=== PATIENT | male | born 1955 | race Hispanic/Latino ===

== ENCOUNTER 2017-08-06 12:41 | Emergency (ER) | payer SELFPAY ==
[2017-08-06] MEDS ORDERED: NACL 0.9% 1000 ML 1,000 ML ONE (13:11)
[2017-08-06 13:50] LABS: Urine Drugs of Abuse Note Disclamer
[2017-08-06 13:59] LABS: Bilirubin,Urine NEG (Negative); Blood,Urine NEG (Negative); Ketones,Urine NEG (Negative); Leukocyte Esterase,Urine NEG (Negative); Nitrite,Urine NEG (Negative); Protein,Urine <15 mg/dL mg/dL (Negative); RBC,Urine < 1.0 /HPF (0.0-6.0); Urobilinogen,Urine < 2.0 mg/dL (<2.0); WBC,Urine < 1.0 /HPF (0.0-6.0)
[2017-08-06 14:50] LABS: Basophils % (Auto) 0.9 % (0.0-1.8); Eosinophils % (Auto) 2.7 % (0.0-4.3); Hematocrit 34.1 % (35.5-45.6); Hemoglobin 11.3 gm/dl (11.8-15.2); Mean Corpuscular HGB Conc 33 % (32-34); Mean Corpuscular Hemoglobin 31 pg (28-32); Mean Corpuscular Volume 95 fl (84-94); Platelet Count 124 K/mm3 (140-440); Red Blood Count 3.59 M/mm3 (3.65-5.03); White Blood Count 6.3 K/mm3 (4.5-11.0)
[2017-08-06 15:18] LABS: Albumin 3.5 g/dL (3.9-5); Albumin/Globulin Ratio 1.2 %; BUN/Creatinine Ratio 15.88; Bilirubin,Total 0.5 mg/dL (0.1-1.2); Calcium 8.6 mg/dL (8.4-10.2); Magnesium 2.4 mg/dL (1.7-2.3); Potassium 4.3 mmol/L (3.6-5.0); Total Protein 6.4 g/dL (6.3-8.2)
--- NOTE | 2017-08-06 17:31 | Emergency Department Report ---
ED General Adult HPI - General Chief complaint: Overdose Stated complaint: AMS Time Seen by Provider: 08/06/17 17:29 Source: EMS Mode of arrival: Stretcher Limitations: Altered Mental Status - History of Present Illness Initial comments: Patient is a 62-year-old male past medical history of opiate abuse and suicidal ideation from [place]. Who presents with accidental medication error. Patient was giving a double dose of his 2 mg of Suboxone. This occurred around 10 AM in the morning. Patient was initially lethargic and was given 1 mg of Narcan. Patient is resting calmly in the ER. He is alert and oriented. He has no pinpoint pupils. Patient denies being in any pain. Nothing makes his symptoms better or worse. Patient denies having any nausea or vomiting. Severity scale (0 -10): 0 - Related Data Allergies Allergy/AdvReac Type Severity Reaction Status Date / Time morphine Allergy Unknown Verified 08/06/17 13:02 succinylcholine Allergy Unknown Verified 08/06/17 13:02 ED Review of Systems ROS: Stated complaint: AMS Other details as noted in HPI Constitutional: weakness. denies: chills, fever Eyes: denies: eye pain, eye discharge, vision change ENT: denies: ear pain, throat pain Respiratory: denies: cough, shortness of breath, wheezing Cardiovascular: denies: chest pain, palpitations Endocrine: no symptoms reported Gastrointestinal: denies: abdominal pain, nausea, diarrhea Genitourinary: denies: urgency, dysuria Musculoskeletal: denies: back pain, joint swelling, arthralgia Skin: denies: rash, lesions Neurological: denies: headache, weakness, paresthesias Psychiatric: as per HPI, anxiety, depression, suicidal thoughts Hematological/Lymphatic: denies: easy bleeding, easy bruising ED Past Medical Hx - Past Medical History Previous Medical History?: Yes Hx Hypertension: Yes Hx Psychiatric Treatment: Yes (SI, HEARING VOICES) Additional medical history: CROHNS DISEASE, ABD AORTIC ANEURYSM, SPINAL STENOSIS , MULTIPLE SCLEROSIS - Surgical History Past Surgical History?: Yes Additional Surgical History: ABDOMINAL SURGERY - Social History Smoking Status: Unknown if ever smoked Substance Use Type: Prescribed ED Physical Exam - General Limitations: Altered Mental Status General appearance: alert, in no apparent distress - Head Head exam: Present: atraumatic, normocephalic - Eye Eye exam: Present: normal appearance - ENT ENT exam: Present: mucous membranes moist - Neck Neck exam: Present: normal inspection - Respiratory Respiratory exam: Present: normal lung sounds bilaterally. Absent: respiratory distress - Cardiovascular Cardiovascular Exam: Present: regular rate, normal rhythm. Absent: systolic murmur, diastolic murmur, rubs, gallop - GI/Abdominal GI/Abdominal exam: Present: soft, normal bowel sounds - Rectal Rectal exam: Present: deferred - Extremities Exam Extremities exam: Present: normal inspection - Back Exam Back exam: Present: normal inspection - Neurological Exam Neurological exam: Present: alert, oriented X3 - Psychiatric Psychiatric exam: Present: depressed, suicidal ideation - Skin Skin exam: Present: warm, dry, intact, normal color. Absent: rash ED Course Vital Signs 08/06/17 08/06/17 08/06/17 12:43 13:16 13:19 Temperature 97.5 F L 97.9 F Pulse Rate 61 Respiratory 12 14 Rate Blood Pressure 102/55 Blood Pressure [Left] O2 Sat by Pulse 100 100 Oximetry 08/06/17 08/06/17 08/06/17 13:30 13:46 14:00 Temperature Pulse Rate 60 61 65 Respiratory 13 11 L 12 Rate Blood Pressure 91/47 82/47 82/47 Blood Pressure [Left] O2 Sat by Pulse 100 Oximetry 08/06/17 08/06/17 08/06/17 14:02 14:16 14:30 Temperature Pulse Rate 61 59 L Respiratory 12 12 16 Rate Blood Pressure 94/40 94/40 Blood Pressure [Left] O2 Sat by Pulse 100 Oximetry 08/06/17 08/06/17 08/06/17 14:46 15:00 15:16 Temperature Pulse Rate 61 60 60 Respiratory 11 L 11 L 12 Rate Blood Pressure 88/46 86/44 99/44 Blood Pressure [Left] O2 Sat by Pulse 100 100 Oximetry 08/06/17 08/06/17 08/06/17 15:30 15:46 16:00 Temperature Pulse Rate 62 62 62 Respiratory 12 11 L 12 Rate Blood Pressure 93/45 91/43 95/47 Blood Pressure [Left] O2 Sat by Pulse 100 100 Oximetry 08/06/17 08/06/17 08/06/17 16:15 16:30 16:46 Temperature Pulse Rate 64 64 68 Respiratory 13 13 15 Rate Blood Pressure 98/53 95/47 119/82 Blood Pressure [Left] O2 Sat by Pulse 100 100 100 Oximetry 08/06/17 08/06/17 08/06/17 17:00 17:16 17:30 Temperature Pulse Rate 65 65 66 Respiratory 12 13 18 Rate Blood Pressure 119/82 116/61 89/51 Blood Pressure [Left] O2 Sat by Pulse 100 99 100 Oximetry 08/06/17 08/06/17 08/06/17 17:46 18:00 18:15 Temperature Pulse Rate 67 66 63 Respiratory 11 L 16 13 Rate Blood Pressure 101/59 120/46 89/47 Blood Pressure [Left] O2 Sat by Pulse 100 95 100 Oximetry 08/06/17 08/06/17 08/06/17 18:30 18:46 19:02 Temperature 98 F Pulse Rate 61 61 63 Respiratory 12 12 16 Rate Blood Pressure 89/47 90/43 Blood Pressure 94/69 [Left] O2 Sat by Pulse 100 100 99 Oximetry - Consultations Consultation #1: 08/06/17 20:03 Consulted with poison control patient's doesn't need any intervention it's been several hours since he took the Suboxone and the dose he got is well within the treatment limits. I will send the patient back to his care facility. ED Medical Decision Making - Lab Data Result diagrams: 08/06/17 14:35 08/06/17 14:35 Lab Results 08/06/17 08/06/17 08/06/17 Range/Units 12:53 13:48 13:48 WBC (4.5-11.0) K/mm3 RBC (3.65-5.03) M/mm3 Hgb (11.8-15.2) gm/dl Hct (35.5-45.6) % MCV (84-94) fl MCH (28-32) pg MCHC (32-34) % RDW (13.2-15.2) % Plt Count (140-440) K/mm3 Lymph % (Auto) (13.4-35.0) % [place] % (Auto) (0.0-7.3) % Eos % (Auto) (0.0-4.3) % Baso % (Auto) (0.0-1.8) % Lymph # (1.2-5.4) K/mm3 [place] # (0.0-0.8) K/mm3 Eos # (0.0-0.4) K/mm3 Baso # (0.0-0.1) K/mm3 Seg Neutrophils % (40.0-70.0) % Seg Neutrophils # (1.8-7.7) K/mm3 Sodium (137-145) mmol/L Potassium (3.6-5.0) mmol/L Chloride (98-107) mmol/L Carbon Dioxide (22-30) mmol/L Anion Gap mmol/L BUN (9-20) mg/dL Creatinine (0.8-1.5) mg/dL Estimated GFR ml/min BUN/Creatinine Ratio % Glucose (75-100) mg/dL POC Glucose 96 (70-105) Lactic Acid (0.7-2.0) mmol/L Calcium (8.4-10.2) mg/dL Magnesium (1.7-2.3) mg/dL Total Bilirubin (0.1-1.2) mg/dL AST (5-40) units/L ALT (7-56) units/L Alkaline Phosphatase (35-129) units/L Total Protein (6.3-8.2) g/dL Albumin (3.9-5) g/dL Albumin/Globulin Ratio % TSH (0.270-4.200) mlU/mL Urine Color Yellow (Yellow) Urine Turbidity Clear (Clear) Urine pH 6.0 (5.0-7.0) Ur Specific [place] 1.010 (1.003-1.030) Urine Protein <15 mg/dl (Negative) mg/dL Urine Glucose (UA) Neg (Negative) mg/dL Urine Ketones Neg (Negative) mg/dL Urine Blood Neg (Negative) Urine Nitrite Neg (Negative) Urine Bilirubin Neg (Negative) Urine Urobilinogen < 2.0 (<2.0) mg/dL Ur Leukocyte Esterase Neg (Negative) Urine WBC (Auto) < 1.0 (0.0-6.0) /HPF Urine RBC (Auto) < 1.0 (0.0-6.0) /HPF Salicylates (2.8-20.0) mg/dL Urine Opiates Screen Presumptive negative Urine Methadone Screen Presumptive negative Acetaminophen (10.0-30.0) ug/mL Ur Barbiturates Screen Presumptive negative Ur Phencyclidine Scrn Presumptive negative Ur Amphetamines Screen Presumptive negative U Benzodiazepines Scrn Presumptive negative Urine Cocaine Screen Presumptive negative U Marijuana (THC) Screen Presumptive negative Drugs of Abuse Note Disclamer Plasma/Serum Alcohol (0-0.07) gm% 08/06/17 08/06/17 08/06/17 Range/Units 14:35 14:35 14:35 WBC 6.3 (4.5-11.0) K/mm3 RBC 3.59 L (3.65-5.03) M/mm3 Hgb 11.3 L (11.8-15.2) gm/dl Hct 34.1 L (35.5-45.6) % MCV 95 H (84-94) fl MCH 31 (28-32) pg MCHC 33 (32-34) % RDW 14.0 (13.2-15.2) % Plt Count 124 L (140-440) K/mm3 Lymph % (Auto) 27.1 (13.4-35.0) % [place] % (Auto) 14.0 H (0.0-7.3) % Eos % (Auto) 2.7 (0.0-4.3) % Baso % (Auto) 0.9 (0.0-1.8) % Lymph # 1.7 (1.2-5.4) K/mm3 [place] # 0.9 H (0.0-0.8) K/mm3 Eos # 0.2 (0.0-0.4) K/mm3 Baso # 0.1 (0.0-0.1) K/mm3 Seg Neutrophils % 55.3 (40.0-70.0) % Seg Neutrophils # 3.5 (1.8-7.7) K/mm3 Sodium 137 (137-145) mmol/L Potassium 4.3 (3.6-5.0) mmol/L Chloride 100.0 (98-107) mmol/L Carbon Dioxide 25 (22-30) mmol/L Anion Gap 16 mmol/L BUN 27 H (9-20) mg/dL Creatinine 1.7 H (0.8-1.5) mg/dL Estimated GFR 41 ml/min BUN/Creatinine Ratio 15.88 % Glucose 82 (75-100) mg/dL POC Glucose (70-105) Lactic Acid 1.10 (0.7-2.0) mmol/L Calcium 8.6 (8.4-10.2) mg/dL Magnesium 2.40 H (1.7-2.3) mg/dL Total Bilirubin 0.50 (0.1-1.2) mg/dL AST 34 (5-40) units/L ALT 27 (7-56) units/L Alkaline Phosphatase 77 (35-129) units/L Total Protein 6.4 (6.3-8.2) g/dL Albumin 3.5 L (3.9-5) g/dL Albumin/Globulin Ratio 1.2 % TSH (0.270-4.200) mlU/mL Urine Color (Yellow) Urine Turbidity (Clear) Urine pH (5.0-7.0) Ur Specific [place] (1.003-1.030) Urine Protein (Negative) mg/dL Urine Glucose (UA) (Negative) mg/dL Urine Ketones (Negative) mg/dL Urine Blood (Negative) Urine Nitrite (Negative) Urine Bilirubin (Negative) Urine Urobilinogen (<2.0) mg/dL Ur Leukocyte Esterase (Negative) Urine WBC (Auto) (0.0-6.0) /HPF Urine RBC (Auto) (0.0-6.0) /HPF Salicylates (2.8-20.0) mg/dL Urine Opiates Screen Urine Methadone Screen Acetaminophen (10.0-30.0) ug/mL Ur Barbiturates Screen Ur Phencyclidine Scrn Ur Amphetamines Screen U Benzodiazepines Scrn Urine Cocaine Screen U Marijuana (THC) Screen Drugs of Abuse Note Plasma/Serum Alcohol (0-0.07) gm% 08/06/17 08/06/17 08/06/17 Range/Units 14:35 14:35 14:35 WBC (4.5-11.0) K/mm3 RBC (3.65-5.03) M/mm3 Hgb (11.8-15.2) gm/dl Hct (35.5-45.6) % MCV (84-94) fl MCH (28-32) pg MCHC (32-34) % RDW (13.2-15.2) % Plt Count (140-440) K/mm3 Lymph % (Auto) (13.4-35.0) % [place] % (Auto) (0.0-7.3) % Eos % (Auto) (0.0-4.3) % Baso % (Auto) (0.0-1.8) % Lymph # (1.2-5.4) K/mm3 [place] # (0.0-0.8) K/mm3 Eos # (0.0-0.4) K/mm3 Baso # (0.0-0.1) K/mm3 Seg Neutrophils % (40.0-70.0) % Seg Neutrophils # (1.8-7.7) K/mm3 Sodium (137-145) mmol/L Potassium (3.6-5.0) mmol/L Chloride (98-107) mmol/L Carbon Dioxide (22-30) mmol/L Anion Gap mmol/L BUN (9-20) mg/dL Creatinine (0.8-1.5) mg/dL Estimated GFR ml/min BUN/Creatinine Ratio % Glucose (75-100) mg/dL POC Glucose (70-105) Lactic Acid (0.7-2.0) mmol/L Calcium (8.4-10.2) mg/dL Magnesium (1.7-2.3) mg/dL Total Bilirubin (0.1-1.2) mg/dL AST (5-40) units/L ALT (7-56) units/L Alkaline Phosphatase (35-129) units/L Total Protein (6.3-8.2) g/dL Albumin (3.9-5) g/dL Albumin/Globulin Ratio % TSH 3.390 (0.270-4.200) mlU/mL Urine Color (Yellow) Urine Turbidity (Clear) Urine pH (5.0-7.0) Ur Specific [place] (1.003-1.030) Urine Protein (Negative) mg/dL Urine Glucose (UA) (Negative) mg/dL Urine Ketones (Negative) mg/dL Urine Blood (Negative) Urine Nitrite (Negative) Urine Bilirubin (Negative) Urine Urobilinogen (<2.0) mg/dL Ur Leukocyte Esterase (Negative) Urine WBC (Auto) (0.0-6.0) /HPF Urine RBC (Auto) (0.0-6.0) /HPF Salicylates < 0.3 L (2.8-20.0) mg/dL Urine Opiates Screen Urine Methadone Screen Acetaminophen < 15.0 (10.0-30.0) ug/mL Ur Barbiturates Screen Ur Phencyclidine Scrn Ur Amphetamines Screen U Benzodiazepines Scrn Urine Cocaine Screen U Marijuana (THC) Screen Drugs of Abuse Note Plasma/Serum Alcohol (0-0.07) gm% 08/06/17 08/06/17 Range/Units 14:35 16:23 WBC (4.5-11.0) K/mm3 RBC (3.65-5.03) M/mm3 Hgb (11.8-15.2) gm/dl Hct (35.5-45.6) % MCV (84-94) fl MCH (28-32) pg MCHC (32-34) % RDW (13.2-15.2) % Plt Count (140-440) K/mm3 Lymph % (Auto) (13.4-35.0) % [place] % (Auto) (0.0-7.3) % Eos % (Auto) (0.0-4.3) % Baso % (Auto) (0.0-1.8) % Lymph # (1.2-5.4) K/mm3 [place] # (0.0-0.8) K/mm3 Eos # (0.0-0.4) K/mm3 Baso # (0.0-0.1) K/mm3 Seg Neutrophils % (40.0-70.0) % Seg Neutrophils # (1.8-7.7) K/mm3 Sodium (137-145) mmol/L Potassium (3.6-5.0) mmol/L Chloride (98-107) mmol/L Carbon Dioxide (22-30) mmol/L Anion Gap mmol/L BUN (9-20) mg/dL Creatinine (0.8-1.5) mg/dL Estimated GFR ml/min BUN/Creatinine Ratio % Glucose (75-100) mg/dL POC Glucose (70-105) Lactic Acid 1.00 (0.7-2.0) mmol/L Calcium (8.4-10.2) mg/dL Magnesium (1.7-2.3) mg/dL Total Bilirubin (0.1-1.2) mg/dL AST (5-40) units/L ALT (7-56) units/L Alkaline Phosphatase (35-129) units/L Total Protein (6.3-8.2) g/dL Albumin (3.9-5) g/dL Albumin/Globulin Ratio % TSH (0.270-4.200) mlU/mL Urine Color (Yellow) Urine Turbidity (Clear) Urine pH (5.0-7.0) Ur Specific [place] (1.003-1.030) Urine Protein (Negative) mg/dL Urine Glucose (UA) (Negative) mg/dL Urine Ketones (Negative) mg/dL Urine Blood (Negative) Urine Nitrite (Negative) Urine Bilirubin (Negative) Urine Urobilinogen (<2.0) mg/dL Ur Leukocyte Esterase (Negative) Urine WBC (Auto) (0.0-6.0) /HPF Urine RBC (Auto) (0.0-6.0) /HPF Salicylates (2.8-20.0) mg/dL Urine Opiates Screen Urine Methadone Screen Acetaminophen (10.0-30.0) ug/mL Ur Barbiturates Screen Ur Phencyclidine Scrn Ur Amphetamines Screen U Benzodiazepines Scrn Urine Cocaine Screen U Marijuana (THC) Screen Drugs of Abuse Note Plasma/Serum Alcohol < 0.01 (0-0.07) gm% - EKG Data -: EKG Interpreted by Me - EKG Data 08/06/17 18:33 EKG shows sinus rhythm nonspecific T-wave abnormality and aVL V5 and V6 no ST segment elevations normal axis. - Medical Decision Making Chief medical diagnosis: Suboxone overdose Differential medical diagnosis: Metabolic abnormality, medication side effect, alcohol intoxication I will get CBC, CMP, urine tox, observation and poison control consult. Critical care attestation.: If time is entered above; I have spent that time in minutes in the direct care of this critically ill patient, excluding procedure time. ED Disposition Clinical Impression: Medication administered in error Qualifiers: Encounter type: initial encounter Injury intent: accidental or unintentional Qualified Code(s): T50.901A - Poisoning by unspecified drugs, medicaments and biological substances, accidental (unintentional), initial encounter Overdose opiate Qualifiers: Encounter type: initial encounter Injury intent: accidental or unintentional Qualified Code(s): T40.601A - Poisoning by unspecified narcotics, accidental ( unintentional), initial encounter Disposition: DC/TX-65 PSY HOSP/PSY UNIT Is pt being admited?: No Does the pt Need Aspirin: No Condition: Stable Instructions: Narcotic Abuse (ED) Referrals: VALENTINO BOUDREAUX MD [Staff Physician] - 3-5 Days
[2017-08-06 21:21] VITALS: BP 94/69
== END 2017-08-06 21:15 ==
LOC: ED 12:41
DX: T40.601A Poisoning by unspecified narcotics, accidental (unintentional), initial encounter (principal); I10 Essential (primary) hypertension; Z88.6 Allergy status to analgesic agent; Z88.8 Allergy status to other drugs, medicaments and biological substances; Y92.89 Other specified places as the place of occurrence of the external cause
CPT/HCPCS: 36415; 80053; 80307; 81001; 82140; 82962; 83735; 84443; 85025; 93005; 93010; 99285; G0480; J7030; 80320

== ENCOUNTER 2017-08-12 23:27 | Inpatient (IN) | payer MEDICARE, OTHER ==
[2017-08-13 00:25] LABS: Eosinophils % (Auto) 2.8 % (0.0-4.3); Hematocrit 39.2 % (35.5-45.6); Hemoglobin 13.2 gm/dl (11.8-15.2); Mean Corpuscular HGB Conc 34 % (32-34); Mean Corpuscular Hemoglobin 31 pg (28-32); Mean Corpuscular Volume 93 fl (84-94); Platelet Count 201 K/mm3 (140-440); Red Blood Count 4.24 M/mm3 (3.65-5.03); Red Cell Distribution Width 13.5 % (13.2-15.2); White Blood Count 8.1 K/mm3 (4.5-11.0)
[2017-08-13 00:43] LABS: INR 0.98 (0.87-1.13)
[2017-08-13 00:44] LABS: Partial Thromboplastin Time 30.1 Sec. (24.2-36.6)
[2017-08-13 00:46] LABS: Anion Gap 21 mmol/L; BUN/Creatinine Ratio 12; Blood Urea Nitrogen 13 mg/dL (9-20); Calcium 9.1 mg/dL (8.4-10.2); Carbon Dioxide 22 mmol/L (22-30); Glucose 101 mg/dL (75-100); Potassium 3.3 mmol/L (3.6-5.0); Sodium 137 mmol/L (137-145)
--- NOTE | 2017-08-13 02:03 | XRay Report ---
FINAL REPORT PROCEDURE: XR CHEST ROUTINE 2V TECHNIQUE: PA and lateral chest radiographs were obtained. CPT 29014 HISTORY: Chest Pain COMPARISON: No prior studies are available for comparison. FINDINGS: Heart: Normal. Mediastinum/Vessels: There is calcified plaque in the thoracic aorta. There is no aneurysm.. Lungs/Pleural space: There is advanced COPD. There are no active infiltrates. There are no effusions or pneumothoraces per. Bony thorax: No acute osseous abnormality. Other: IMPRESSION: There is advanced COPD. There are no active infiltrates..
[2017-08-13 05:40] LABS: Urine Drugs of Abuse Note Disclamer
[2017-08-13 05:52] LABS: Bilirubin,Urine NEG (Negative); Blood,Urine NEG (Negative); Ketones,Urine NEG (Negative); Leukocyte Esterase,Urine NEG (Negative); Mucus,Urine FEW /HPF; Nitrite,Urine NEG (Negative); Protein,Urine <15 mg/dL mg/dL (Negative); Urobilinogen,Urine < 2.0 mg/dL (<2.0); WBC,Urine < 1.0 /HPF (0.0-6.0)
--- NOTE | 2017-08-13 06:42 | Emergency Department Report ---
ED Chest Pain HPI - General Chief Complaint: Chest Pain Stated Complaint: CHEST AND JAW PAIN Time Seen by Provider: 08/13/17 06:27 Source: patient Mode of arrival: Ambulatory Limitations: No Limitations - History of Present Illness Initial Comments: 62-year-old male here with complaint of chest pain since 10:30 PM patient. Patient states pain is sharp in the center of his chest radiates to his back and into his left jaw. He's had some mild shortness of breath with it but otherwise no other symptoms. He denies fevers chills nausea vomiting. MD Complaint: chest pain -: Gradual Onset: during rest Pain Location: substernal Pain Radiation: jaw/teeth Severity: moderate Severity scale (0 -10): 0 Quality: sharp Improves With: nothing Worsens With: nothing Treatments Prior to Arrival: none - Related Data Allergies Allergy/AdvReac Type Severity Reaction Status Date / Time morphine Allergy Unknown Verified 08/06/17 13:02 succinylcholine Allergy Unknown Verified 08/06/17 13:02 Heart Score - HEART Score History: Moderately suspicious EKG: Non-specific Age: 45-65 Risk factors: 1-2 risk factors Troponin: < normal limit HEART Score: 4 - Critical Actions Critical Actions: 0-3 pts:0.9-1.7%risk of adverse cardiac event.Candidate for discharge ED Review of Systems ROS: Stated complaint: CHEST AND JAW PAIN Other details as noted in HPI Comment: All other systems reviewed and negative Constitutional: denies: chills, fever Eyes: eye pain ENT: denies: throat pain Respiratory: denies: cough, shortness of breath, wheezing Cardiovascular: chest pain, dyspnea on exertion. denies: palpitations Endocrine: no symptoms reported Gastrointestinal: denies: abdominal pain, nausea, diarrhea Genitourinary: denies: urgency, dysuria Musculoskeletal: denies: back pain, joint swelling, arthralgia Skin: denies: rash, lesions Neurological: denies: headache, weakness, paresthesias Psychiatric: denies: anxiety, depression Hematological/Lymphatic: denies: easy bleeding, easy bruising ED Past Medical Hx - Past Medical History Previous Medical History?: Yes Hx Hypertension: Yes Hx Psychiatric Treatment: Yes (SI, HEARING VOICES) Additional medical history: CROHNS DISEASE, ABD AORTIC ANEURYSM, SPINAL STENOSIS , MULTIPLE SCLEROSIS - Surgical History Past Surgical History?: Yes Additional Surgical History: ABDOMINAL SURGERY - Social History Smoking Status: Never Smoker Substance Use Type: None ED Physical Exam - General Limitations: No Limitations General appearance: alert, in no apparent distress - Head Head exam: Present: atraumatic, normocephalic - Eye Eye exam: Present: normal appearance. Absent: scleral icterus, conjunctival injection - ENT ENT exam: Present: mucous membranes moist - Neck Neck exam: Present: normal inspection. Absent: lymphadenopathy, thyromegaly - Respiratory Respiratory exam: Present: normal lung sounds bilaterally. Absent: respiratory distress, wheezes, rales - Cardiovascular Cardiovascular Exam: Present: regular rate, normal rhythm, normal heart sounds. Absent: systolic murmur, diastolic murmur, rubs, gallop - GI/Abdominal GI/Abdominal exam: Present: soft, normal bowel sounds. Absent: distended, tenderness, guarding - Rectal Rectal exam: Present: deferred - Extremities Exam Extremities exam: Present: normal inspection - Back Exam Back exam: Present: normal inspection - Neurological Exam Neurological exam: Present: alert, oriented X3 - Psychiatric Psychiatric exam: Present: normal affect, normal mood - Skin Skin exam: Present: warm, dry, intact, normal color. Absent: rash ED Course Vital Signs 08/12/17 08/13/17 23:34 06:36 Temperature 98.6 F Pulse Rate 78 74 Respiratory 18 18 Rate Blood Pressure 144/74 147/63 [Right] O2 Sat by Pulse 99 Oximetry ED Medical Decision Making - Lab Data Result diagrams: 08/13/17 00:10 08/13/17 00:10 Laboratory Results - last 24 hr 08/13/17 08/13/17 08/13/17 00:10 00:10 00:10 WBC 8.1 RBC 4.24 Hgb 13.2 Hct 39.2 MCV 93 MCH 31 MCHC 34 RDW 13.5 Plt Count 201 Lymph % (Auto) 40.2 H [place] % (Auto) 8.9 H Eos % (Auto) 2.8 Baso % (Auto) 1.0 Lymph # 3.2 [place] # 0.7 Eos # 0.2 Baso # 0.1 Seg Neutrophils % 47.1 Seg Neutrophils # 3.8 PT 13.5 INR 0.98 APTT 30.1 Sodium 137 Potassium 3.3 L Chloride 97.0 L Carbon Dioxide 22 Anion Gap 21 BUN 13 Creatinine 1.1 Estimated GFR > 60 BUN/Creatinine Ratio 12 Glucose 101 H Calcium 9.1 Troponin T < 0.010 Urine Color Urine Turbidity Urine pH Ur Specific [place] Urine Protein Urine Glucose (UA) Urine Ketones Urine Blood Urine Nitrite Urine Bilirubin Urine Urobilinogen Ur Leukocyte Esterase Urine WBC (Auto) Urine RBC (Auto) U Epithel Cells (Auto) Urine Mucus Urine Opiates Screen Urine Methadone Screen Ur Barbiturates Screen Ur Phencyclidine Scrn Ur Amphetamines Screen U Benzodiazepines Scrn Urine Cocaine Screen U Marijuana (THC) Screen Drugs of Abuse Note 08/13/17 08/13/17 08/13/17 02:50 04:49 04:49 WBC RBC Hgb Hct MCV MCH MCHC RDW Plt Count Lymph % (Auto) [place] % (Auto) Eos % (Auto) Baso % (Auto) Lymph # [place] # Eos # Baso # Seg Neutrophils % Seg Neutrophils # PT INR APTT Sodium Potassium Chloride Carbon Dioxide Anion Gap BUN Creatinine Estimated GFR BUN/Creatinine Ratio Glucose Calcium Troponin T < 0.010 Urine Color Yellow Urine Turbidity Clear Urine pH 5.0 Ur Specific [place] 1.010 Urine Protein <15 mg/dl Urine Glucose (UA) Neg Urine Ketones Neg Urine Blood Neg Urine Nitrite Neg Urine Bilirubin Neg Urine Urobilinogen < 2.0 Ur Leukocyte Esterase Neg Urine WBC (Auto) < 1.0 Urine RBC (Auto) 2.0 U Epithel Cells (Auto) < 1.0 Urine Mucus Few Urine Opiates Screen Presumptive negative Urine Methadone Screen Presumptive negative Ur Barbiturates Screen Presumptive negative Ur Phencyclidine Scrn Presumptive negative Ur Amphetamines Screen Presumptive negative U Benzodiazepines Scrn Presumptive negative Urine Cocaine Screen Presumptive negative U Marijuana (THC) Screen Presumptive negative Drugs of Abuse Note Disclamer 08/13/17 05:28 WBC RBC Hgb Hct MCV MCH MCHC RDW Plt Count Lymph % (Auto) [place] % (Auto) Eos % (Auto) Baso % (Auto) Lymph # [place] # Eos # Baso # Seg Neutrophils % Seg Neutrophils # PT INR APTT Sodium Potassium Chloride Carbon Dioxide Anion Gap BUN Creatinine Estimated GFR BUN/Creatinine Ratio Glucose Calcium Troponin T < 0.010 Urine Color Urine Turbidity Urine pH Ur Specific [place] Urine Protein Urine Glucose (UA) Urine Ketones Urine Blood Urine Nitrite Urine Bilirubin Urine Urobilinogen Ur Leukocyte Esterase Urine WBC (Auto) Urine RBC (Auto) U Epithel Cells (Auto) Urine Mucus Urine Opiates Screen Urine Methadone Screen Ur Barbiturates Screen Ur Phencyclidine Scrn Ur Amphetamines Screen U Benzodiazepines Scrn Urine Cocaine Screen U Marijuana (THC) Screen Drugs of Abuse Note - EKG Data -: EKG Interpreted by Me - EKG Data 08/13/17 06:42 Sinus 63 normal axis normal intervals abnormal R-wave progression no obvious ST changes, some T-wave changes in V5 and V6 - Radiology Data Radiology results: report reviewed, image reviewed - Medical Decision Making 62-year-old male with a history of abdominal aneurysm [place] here with complaint of chest pain. Patient has pain service chest radiates to his back. Denies fevers chills nausea vomiting. Given his age and his heart score and the fact that he's not had a stress test in over 4 years will likely need further risk stratification. Plan to admit the patient to the hospital. Discussed with the hospitalist and plan to admit the patient for further risk stratification. Portions of this chart were dictated with dictation software. There may be dictation errors contained within this note. Critical care attestation.: If time is entered above; I have spent that time in minutes in the direct care of this critically ill patient, excluding procedure time. ED Disposition Clinical Impression: Chest pain Disposition: DC-09 OP ADMIT IP TO THIS HOSP Is pt being admited?: Yes Condition: Stable Instructions: Chest Pain (ED) Referrals: PRIMARY CARE, [Primary Care Provider] - 3-5 Days
[2017-08-13] MEDS ORDERED: MORPHINE IV PRN (08:50)
[2017-08-13] MEDS ORDERED: ZOFRAN IV PRN (08:50)
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
[2017-08-13] MEDS ORDERED: TYLENOL PO PRN (09:00)
[2017-08-13] MEDS ORDERED: DULCOLAX PR PRN (09:00)
[2017-08-13] MEDS ORDERED: D5/0.45NS 1,000 ML IV SCH (09:00)
[2017-08-13] MEDS ORDERED: K-DUR PO ONE (09:30)
[2017-08-13] MEDS ORDERED: ASPIRIN PO SCH (10:00)
[2017-08-13] MEDS ORDERED: DILAUDID IM PRN (10:00)
[2017-08-13] MEDS ORDERED: LOVENOX SUB-Q SCH (10:00)
[2017-08-13] MEDS ORDERED: ZOFRAN IM PRN (10:00)
[2017-08-13] MEDS ORDERED: NITROSTAT SL PRN (10:00)
[2017-08-13] MEDS ORDERED: MILK OF MAGNESIA PO PRN (10:00)
[2017-08-13] MEDS ORDERED: LEXISCAN IV ONE ×2 (11:29→11:31)
[2017-08-13] MEDS ORDERED: DILAUDID ONE (12:26)
[2017-08-13 13:05] VITALS: BP 125/66
--- NOTE | 2017-08-13 13:43 | Discharge Summary ---
<GIULIANO NICKERSON - Last Filed: 08/13/17 13:45> Providers - Providers Date of Admission: 08/13/17 08:50 Date of discharge: 08/13/17 Attending physician: TAMARA LLOYD 08/13/17 10:14 Consult to Mental Health [CONS] Routine Reason For Exam: depression Place consult to:: yes Notified:: yes Phone number called:: marino [phone] Time called:: 13:30 Primary care physician: ST[facility] [employer]PA[employer] Hospitalization Reason for admission: chest pain Condition: Stable Hospital course: Patient is a 62 years old male from [facility] with past medical history of hypertension, depression, Suicidal ideation abdominal aneurysm MS and crohn's disease who presented to the Emergency Department complaining of Midsternal chest pain. He states that the pain began yesterday around 10:00PM, after eating dinner, constant midsternal chest pain. Patient described the pain as, sharp, pressure and squeezing in his chest; that radiates to the back. Patient was diagnosed with chest pain, hypertension, hypokalemia disorder and depression. Patient presented with atypical chest pain, ACS was ruled out, stress test normal MPI, negative cardiac enzymes, ECGs shows normal sinus rythm , CXR. Patient chest pain probably from musculoskeletal or gastritis. He was treated with IV fluid hydration and antihypertensive medications. Patient is clinically improved and stable for discharge. Patient advised to follow-up with her primary care provider. Discharge Diagnosed Chest Pain due to Costochondritis Hypokalemia Hypertension Depression Disposition: DC-01 TO HOME OR SELFCARE Time spent for discharge: 33 minutes Core Measure Documentation - Palliative Care Palliative Care/ Comfort Measures: Not Applicable - Core Measures Any of the following diagnoses?: none Exam - Constitutional Vitals: Temp Pulse Resp BP Pulse Ox 98.1 F 78 18 125/66 99 08/13/17 12:58 08/13/17 12:58 08/13/17 12:58 08/13/17 12:58 08/13/17 12:58 General appearance: Present: no acute distress - EENT Eyes: Present: PERRL ENT: hearing intact - Neck Neck: Present: supple - Respiratory Respiratory effort: normal Respiratory: bilateral: CTA - Cardiovascular Rhythm: regular Heart Sounds: Present: S1 & S2 - Extremities Extremities: no ischemia - Abdominal General gastrointestinal: Present: soft, non-tender Male genitourinary: Present: deferred - Rectal Rectal Exam: deferred - Integumentary Integumentary: Present: clear, warm, dry - Musculoskeletal Musculoskeletal: strength equal bilaterally - Psychiatric Psychiatric: appropriate mood/affect - Neurologic Neurologic: CNII-XII intact - Allied Health Allied health notes reviewed: nursing Plan Activity: no restrictions Weight Bearing Status: Weight Bear as Tolerated Diet: low fat, low salt Follow up with: [facility] [Provider Group] - 7 Days PRIMARY CARE, [Primary Care Provider] - 3-5 Days <TAMARA LLOYD - Last Filed: 08/13/17 15:05> Providers - Providers Date of Admission: 08/13/17 08:50 Attending physician: TAMARA LLOYD 08/13/17 10:14 Consult to Mental Health [CONS] Routine Reason For Exam: depression Place consult to:: yes Notified:: yes Phone number called:: ex [phone] Time called:: 13:30 Primary care physician: [facility] [employer] Hospitalization Hospital course: I saw and evaluated the patient. I agree with the findings and the plan of care as documented in the Nurse Practitioner's~note. Exam - Constitutional Vitals: Temp Pulse Resp BP Pulse Ox 98.1 F 78 18 125/66 99 08/13/17 12:58 08/13/17 12:58 08/13/17 12:58 08/13/17 12:58 08/13/17 12:58
--- NOTE | 2017-08-14 06:59 | Treadmill Report ---
REASON FOR STUDY: Chest pain. READING PHYSICIAN: Gerald Beckman MD IMAGING PROTOCOL: The patient received 10 mCi of Technetium 99m Tetrofosmin for resting image and 28 mCi of Technetium 99m Tetrofosmin for stress imaging. The imaging for the whole procedure was completed 30-90 minutes following the initial injection of Technetium 99m tetrofosmin. The SPECT imaging in the 180 degree arc was performed in the right anterior oblique projection. Computerized reconstruction of the images was performed for analysis. IMAGING RESULTS: Normal cavity size from stress to rest. Normal distribution of radionuclide in the anterior, inferior, septal, and apical regions. Gated SPECT, EF 50% with no wall motion abnormality. The patient infused Lexiscan with no EKG changes. SUMMARY: 1. Negative Lexiscan EKG. 2. Normal rest and stress myocardial perfusion scan. No significant stress ischemia. No wall motion abnormality. EF 50%. JOB# [id number] RON/ERLINDA
== END 2017-08-13 14:24 | DRG 206 ==
LOC: ED 23:27 → 4A 08-13 08:50
PROVIDERS: ADMIT Internal Medicine; ATTEND Internal Medicine
DX: M94.0 Chondrocostal junction syndrome [Tietze] (principal); K50.90 Crohn's disease, unspecified, without complications; I10 Essential (primary) hypertension; G35 Multiple sclerosis; F32.9 Major depressive disorder, single episode, unspecified; E87.6 Hypokalemia; Z88.6 Allergy status to analgesic agent; Z88.8 Allergy status to other drugs, medicaments and biological substances
CPT/HCPCS: 36415; 71020; 78452; 80048; 80307; 81001; 84484; 85025; 85610; 85730; 93005; 93010; 93017; 96372; 96374; A9502; J1170; J1650; J2785

== ENCOUNTER 2021-04-16 12:55 | Inpatient (IN) | payer MEDICARE ==
--- NOTE | 2021-04-17 08:51 | History and Physical Report ---
GP History & Physical - History of Present Illness Date of admission: 04/16/21 Date of Examination: 04/17/21 Reason for Admission: Danger to self, Failure of Outpatient Treatment, Severe anxiety/depression History of Present Illness: Amada Snow is a 65y/o male patient who states that he was admitted to [facility] for depression with suicidal thoughts and anxiety. The patient appears anxious. He is slightly shaky. He is a/o x 3. He denies any illicit drug use, alcohol or nicotine. He denies a plan to do self-harm. The patient denies being on any psych meds. He also denies a history of suicidal attempt or psych hospitalizations. He denies hallucinations PAST PSYCHIATRIC HISTORY: Diagnoses: Depression, anxiety Suicide attempts or Self-harm behavior: Denies Prior psychiatric hospitalizations: Denies Substance Abuse history: Denies Previous psychiatric medications tried: Ambien Outpatient treatment: Denies PAST MEDICAL HISTORY: HTN Family Psychiatric History: None reported or documented SOCIAL HISTORY Marital Status: Living Arrangements: With spouse Employment Status: Disabled/Retired Access to guns/weapons: Denies Education: high school History of Abuse: None reported Legal History: None reported REVIEW OF SYSTEMS Constitutional: Negative for weight loss ENT: Negative for stridor Respiratory: Negative for cough or hemoptysis All other systems reviewed and are negative MENTAL STATUS EXAMINATION General Appearance and Behavior: Age appropriate, good hygiene, wearing appropriate clothes, good eye contact, cooperative polite with questioning. shaky Cooperation: Participating/engaged Psychomotor Behavior: Psychomotor normal Mood: "depressed, anxious" Affect and affective range: congruent with stated mood Thought Process: goal directed Thought Content: SI Speech: Normal tone and pace Suicidal Ideation: Yes Homicidal Ideation: Denies Hallucinations: Denies Delusions: None elicited Impulse Control: Limited Insight and Judgment: Limited insight and judgment Memory: Limited Attention: Divided attention impaired Orientation: Alert, oriented, Assessment and Plan (1) MDD, severe, with psychotic features Current Visit: Yes Status: Acute Treatment Plan Patient admitted for inpatient psychiatric evaluation, medication adjustment and close monitoring The patient's behavior, mood, sleep and appetite will be closely monitored. Patient enrolled in individual and group therapeutic sessions and encouraged to attend. Patient provided with a safe and structured environment. Patient's physical health needs will be addressed by the Hospitalist. Hospitalist Consulted Labs including CBC, CMP, Lipid profile and Hemoglobin A1C levels ordered for baseline reference Social Assessment will be completed and the Decker Operator will work with marcelino pérez and family to ensure a suitable and safe disposition Medication adjustment will be made as clinically indicated Zoloft 25mg po daily Trazodone 50mg po qd Vistaril 25mg po BID Continued home medications, hold pain meds and allow hospitalist to continue Usual Wellness Buddhism/Preservation: - Start Trazodone 50 mg po QHS & 50 mg po QHS PRN between 10 PM & 2 AM for insomnia - Start Melatonin 5 mg po QHS to promote circadian rhythm - Start Hendrum-3 for brain health, reduce impulsivity, and as adjunctive treatment for mood disorder, continue upon discharge given overall benefits. - Start B1 prophylaxis with 200 mg po for 5 days The patient agreed on the treatment plan, understood the risk, benefit, alternative treatment, potential consequence of no treatment, and gave informed consent. Estimated days: 2 Post hospital care: primary care provider, psychiatric provider Case staffed with Dr. Pittman Legal Status: Voluntary Reaction to Hospitalization: Accepting Medications and Allergies Allergies Allergy/AdvReac Type Severity Reaction Status Date / Time morphine Allergy Unknown Unverified 04/16/21 13:26 prednisone Allergy Unknown Unverified 04/16/21 13:26 succinylcholine Allergy Unknown Verified 08/06/17 13:02 Home Medications Medication Instructions Recorded Confirmed Last Taken Type Aspirin 325 mg PO DAILY tablet 08/13/17 Unknown Rx Gabapentin [Neurontin] 800 mg PO QID 08/13/17 08/13/17 Unknown History Methadone [Dolophine] 10 mg PO Q6H 08/13/17 08/13/17 Unknown History Oxycodone HCl [oxyCODONE] 20 mg PO QID 08/13/17 08/13/17 Unknown History amLODIPine 10 mg PO DAILY 08/13/17 08/13/17 Unknown History Active Meds: Active Medications Trazodone HCl (Trazodone 50 Mg Tab) 50 mg PO QHS [facility] Results - Results Labs/Vitals: Last Vital Signs Temp 97.6 F 04/17/21 06:54 Pulse 50 L 04/17/21 06:54 Resp 20 04/17/21 06:54 BP 172/57 04/17/21 06:54 Pulse Ox 95 04/17/21 06:54 Physical Examination - Constitutional Vitals: Vital Signs Temp Pulse Resp BP Pulse Ox 97.6 F 50 L 20 172/57 95 04/17/21 06:54 04/17/21 06:54 04/17/21 06:54 04/17/21 06:54 04/17/21 06:54 Temperature -Last 24 Hours Temperature 97.6 F Mental Status Exam - Vital signs Last Vital Signs Temp 97.6 F 04/17/21 06:54 Pulse 50 L 04/17/21 06:54 Resp 20 04/17/21 06:54 BP 172/57 04/17/21 06:54 Pulse Ox 95 04/17/21 06:54 Physician Certification - Certification Statement Physician Certification Statement: This is an acknowledgement statement that AMADA SNOW is a 65 year old M who requires inpatient psychiatric admission for treatment which could reasonably be expected to improve the patient's condition for Estimated period of time patient will need to remain in the hospital: [ ] Plan for post-hospital care: [ ]
[2021-04-17] MEDS ORDERED: METHADONE 10 MG TAB PO SCH (09:00)
[2021-04-17] MEDS ORDERED: NON-FORMULARY EACH (Gabapentin [Neurontin] 800 MG Tablet) PO SCH (10:00)
[2021-04-17] MEDS ORDERED: GABAPENTIN 400 MG CAP PO SCH (10:00)
[2021-04-17] MEDS ORDERED: NON-FORMULARY EACH (Oxycodone Hcl [Oxycodone] 20 MG Tablet) PO SCH (10:00)
[2021-04-17] MEDS: amLODIPine 10 MG TAB PO SCH (10:45)
[2021-04-17] MEDS: SERTRALINE 25 MG TAB PO SCH ×2 (10:46→14:46)
[2021-04-17] MEDS: ASPIRIN 325 MG TAB PO SCH (10:46)
--- NOTE | 2021-04-17 11:12 | Consultation ---
History of Present Illness - Reason for Consult Consult date: 04/16/21 Medical Management Requesting physician: DAGO BRAGA - History of Present Illness 65 YO Male with Crohns Disease, Spinal Stenosis, MS, Vascular dementia, Cerebral atherosclerosis, chronic Pain Syndrome, Depression admitted to [facility] for psychiatric stabilization. Consult placed by for medical management. Patient seen and evaluated in his room. Patient resting comfortab ly. Patient denies pain. Patient denies fever, chills, chest pain, palpitation, productive cough, skin rash, recent ill contacts, or known exposure to COVID-19. No reported nursing events. Past History Past Medical History: other (See HPI) Past Surgical History: bowel surgery Social history: Family history: hypertension Medications and Allergies Allergies Allergy/AdvReac Type Severity Reaction Status Date / Time morphine Allergy Unknown Unverified 04/16/21 13:26 prednisone Allergy Unknown Unverified 04/16/21 13:26 succinylcholine Allergy Unknown Verified 08/06/17 13:02 Home Medications Medication Instructions Recorded Confirmed Last Taken Type Aspirin 325 mg PO DAILY tablet 08/13/17 04/17/21 Unknown Rx Methadone [Dolophine] 10 mg PO Q6H 08/13/17 04/17/21 Unknown History Oxycodone HCl [oxyCODONE] 20 mg PO QID 08/13/17 04/17/21 Unknown History amLODIPine 10 mg PO DAILY 08/13/17 04/17/21 Unknown History Atorvastatin [Lipitor] 40 mg PO HS 04/17/21 04/17/21 Unknown History Gabapentin 400 mg PO QID 04/17/21 04/17/21 Unknown History Metoprolol [Lopressor TAB] 50 mg PO BID 04/17/21 04/17/21 Unknown History OLANzapine [Zyprexa] 10 mg PO QHS 04/17/21 04/17/21 Unknown History Tamsulosin [Flomax] 0.4 mg PO HS 04/17/21 04/17/21 Unknown History Venlafaxine Xr [Effexor XR] 150 mg PO DAILY 04/17/21 04/17/21 Unknown History Zolpidem [Ambien] 10 mg PO HS PRN 04/17/21 04/17/21 Unknown History Active Meds: Active Medications Amlodipine Besylate (Amlodipine 10 Mg Tab) 10 mg PO DAILY [facility] Last Admin: 04/17/21 10:45 Dose: 10 mg Documented by: Aspirin (Aspirin 325 Mg Tab) 325 mg PO DAILY [facility] Last Admin: 04/17/21 10:46 Dose: 325 mg Documented by: Gabapentin (Gabapentin 400 Mg Cap) 800 mg PO QID [facility] Last Admin: 04/17/21 10:47 Dose: 800 mg Documented by: Hydroxyzine HCl (Hydroxyzine Hcl 25 Mg Tab) 25 mg PO BID [facility] Sertraline HCl (Sertraline 25 Mg Tab) 25 mg PO QDAY [facility] Last Admin: 04/17/21 10:46 Dose: 25 mg Documented by: Trazodone HCl (Trazodone 50 Mg Tab) 50 mg PO QHS [facility] Review of Systems Constitutional: no weight loss, no fever, no sweats Ears, nose, mouth and throat: no ear pain, no tinnitis, no decreased hearing, no nose pain, no sinus pressure Cardiovascular: no chest pain, no palpitations, no rapid/irregular heart beat, no syncope Respiratory: no cough, no excessive sputum, no shortness of breath, no dyspnea on exertion Gastrointestinal: no nausea, no vomiting, no constipation, no change in bowel habits, no hematemesis Genitourinary Male: no hematuria, no urinary hesitancy Rectal: no pain, no incontinence, no bleeding Musculoskeletal: no neck stiffness, no shooting arm pain, no low back pain Integumentary: no rash, no pruritis, no redness, no wounds, no jaundice, no boils Neurological: no head injury, no paralysis, no parathesias, no tingling, no seizures, no syncope, no tremors Psychiatric: no anxiety, no change in sleep habits, no sleep disturbances, no insomnia, no hypersomnia, no suicidal ideation Endocrine: no cold intolerance, no polydipsia, no flushing Hematologic/Lymphatic: no easy bruising, no easy bleeding Allergic/Immunologic: no urticaria, no allergic rhinitis, no wheezing Exam - Constitutional Vitals: Temp Pulse Resp BP Pulse Ox 97.6 F 60 20 113/42 95 04/17/21 06:54 04/17/21 10:45 04/17/21 06:54 04/17/21 10:45 04/17/21 06:54 General appearance: Present: no acute distress, well-nourished - EENT Eyes: Present: PERRL ENT: hearing intact, clear oral mucosa - Neck Neck: Present: supple, normal ROM - Respiratory Respiratory effort: normal Respiratory: bilateral: CTA - Cardiovascular Heart Sounds: Present: S1 & S2. Absent: rub, click - Extremities Extremities: pulses symmetrical, No edema Peripheral Pulses: within normal limits - Abdominal General gastrointestinal: Present: soft, non-tender, non-distended, normal bowel sounds Male genitourinary: Present: normal - Integumentary Integumentary: Present: clear, warm, dry - Musculoskeletal Musculoskeletal: gait normal, strength equal bilaterally - Psychiatric Psychiatric: cooperative - Neurologic Neurologic: CNII-XII intact, moves all extremities Assessment and Plan - Patient Problems (1) Vascular dementia with behavioral disturbance Current Visit: Yes Status: Acute Plan to address problem: Verbal prompting, verbal redirection, benzodiazepine therapy as clinically indicated. (2) Suicidal ideation Current Visit: No Status: Acute Plan to address problem: Continue medical management. (3) Cerebral atherosclerosis Current Visit: Yes Status: Acute Plan to address problem: Risk factor reduction therapy, antiplatelet therapy as clinically indicated (4) Crohn's disease Current Visit: Yes Status: Acute Plan to address problem: Supportive care, continue medical management (5) Chronic pain syndrome Current Visit: Yes Status: Acute Plan to address problem: Continue methadone after verification of patient dose, continue Neurontin,
[2021-04-17 13:16] LABS: Basophils # (Auto) 0.1 K/mm3 (0.0-0.1); Basophils % (Auto) 2.5 % (0.0-1.8); Eosinophils # (Auto) 0.3 K/mm3 (0.0-0.4); Eosinophils % (Auto) 6.1 % (0.0-4.3); Hematocrit 33.7 % (35.5-45.6); Hemoglobin 11.5 gm/dl (11.8-15.2); Lymphocytes # (Auto) 0.7 K/mm3 (1.2-5.4); Lymphocytes % (Auto) 11.9 % (13.4-35.0); Mean Corpuscular HGB Conc 34 % (32-34); Mean Corpuscular Volume 92 fl (84-94); Monocytes # (Auto) 0.5 K/mm3 (0.0-0.8); Monocytes % (Auto) 8.6 % (0.0-7.3); Platelet Count 146 K/mm3 (140-440); Red Blood Count 3.66 M/mm3 (3.65-5.03); Red Cell Distribution Width 14.6 % (13.2-15.2)
[2021-04-17 13:43] LABS: Albumin 3.7 g/dL (3.9-5); Calcium 9.2 mg/dL (8.4-10.2); Chol/HDL Ratio 2.08 %
[2021-04-17] MEDS: GABAPENTIN 400 MG CAP PO SCH ×2 (14:46→21:01)
[2021-04-17] MEDS: hydrOXYzine HCL 25 MG TAB PO SCH ×2 (14:47→21:01)
[2021-04-17] MEDS: TAMSULOSIN 0.4 MG CAP PO SCH (21:00)
[2021-04-17] MEDS: traZODone 50 MG TAB PO SCH (21:00)
[2021-04-17] MEDS: METOPROLOL TARTRATE 50 MG TAB PO SCH (21:02)
[2021-04-17] MEDS ORDERED: cloNIDine 0.1 MG TAB PO PRN (23:11)
--- NOTE | 2021-04-18 08:17 | History and Physical Report ---
GP History & Physical - History of Present Illness Date of admission: 04/17/21 Date of Examination: 04/18/21 Reason for Admission: Psychopathology interference, Severe anxiety/depression History of Present Illness: Reason for Admission: Danger to self, Failure of Outpatient Treatment, Severe anxiety/depression\\ Per ED Provider: The patient is a 65-year-old male present with a chief complaint of suicidal ideation. The patient was sent from [facility] for suicidal ideation. Patient reportedly presented to that hospital for chest pain and abdominal pain. Patient had a stress test performed which was abnormal, CT abdomen pelvis performed an echocardiogram. Documentation from cardiology states that they will hold off on cardiac catheterization at this time given current depressed states with suicidal ideation. Patient was cleared to be discharged from a cardiology standpoint to go to a psych facility and they will schedule an outpatient left heart cath. The patient states he lost 3 of his 6 children and this is what makes him depressed and suicidal. The patient states for the past 5 days he has felt suicidal. Patient denies any attempts at harming himself but states his plan was to overdose on his blood pressure medication. History of Present Illness: Amada Snow is a 65y/o male patient who states that he was admitted to [facility] for depression with suicidal thoughts and anxiety. The patient appears anxious. He is slightly shaky. He is a/o x 3. He denies any illicit drug use, alcohol or nicotine. He denies a plan to do self-harm. The patient denies being on any psych meds. He also denies a history of suicidal attempt or psych hospitalizations. He denies hallucinations. Patient states though he came here for depression but has medical concerns as regards to pain that he can discuss with medical doctor. Patient informed he will be seen by doc. PAST PSYCHIATRIC HISTORY: Diagnoses: Depression, anxiety Suicide attempts or Self-harm behavior: Denies Prior psychiatric hospitalizations: Denies Substance Abuse history: Denies Previous psychiatric medications tried: Ambien Outpatient treatment: Denies PAST MEDICAL HISTORY: HTN Family Psychiatric History: None reported or documented SOCIAL HISTORY Marital Status: Living Arrangements: With spouse Employment Status: Disabled/Retired Access to guns/weapons: Denies Education: high school History of Abuse: None reported Legal History: None reported REVIEW OF SYSTEMS Constitutional: Negative for weight loss ENT: Negative for stridor Respiratory: Negative for cough or hemoptysis All other systems reviewed and are negative MENTAL STATUS EXAMINATION General Appearance and Behavior: Age appropriate, good hygiene, wearing appropriate clothes, good eye contact, cooperative polite with questioning. s destinyky Cooperation: Participating/engaged Psychomotor Behavior: Psychomotor normal Mood: "depressed, anxious" Affect and affective range: congruent with stated mood Thought Process: goal directed Thought Content: SI Speech: Normal tone and pace Suicidal Ideation: Yes Homicidal Ideation: Denies Hallucinations: Denies Delusions: None elicited Impulse Control: Limited Insight and Judgment: Limited insight and judgment Memory: Limited Attention: Divided attention impaired Orientation: Alert, oriented, Assessment and Plan (1) MDD, severe, with psychotic features Current Visit: Yes Status: Acute Treatment Plan Patient admitted for inpatient psychiatric evaluation, medication adjustment and close monitoring The patient's behavior, mood, sleep and appetite will be closely monitored. Patient enrolled in individual and group therapeutic sessions and encouraged to attend. Patient provided with a safe and structured environment. Patient's physical health needs will be addressed by the Hospitalist. Hospitalist Consulted Labs including CBC, CMP, Lipid profile and Hemoglobin A1C levels ordered for baseline reference Social Assessment will be completed and the Investigative Writer will work with patient and family to ensure a suitable and safe disposition Medication adjustment will be made as clinically indicated Zoloft 25mg po daily Trazodone 50mg po qd Vistaril 25mg po BID Continued home medications, hold pain meds and allow hospitalist to continue Usual Wellness Christianity/Preservation: - Start Trazodone 50 mg po QHS & 50 mg po QHS PRN between 10 PM & 2 AM for insomnia - Start Melatonin 5 mg po QHS to promote circadian rhythm - Start [place]-3 for brain health, reduce impulsivity, and as adjunctive treatment for mood disorder, continue upon discharge given overall benefits. - Start B1 prophylaxis with 200 mg po for 5 days The patient agreed on the treatment plan, understood the risk, benefit, alternative treatment, potential consequence of no treatment, and gave informed consent. Estimated days: 2 Post hospital care: primary care provider, psychiatric provider Case staffed with Dr. Pittman Legal Status: Voluntary Patient Problems: Current Active Problems Cerebral atherosclerosis (Acute) Chronic pain syndrome (Acute) Crohn's disease (Acute) Vascular dementia with behavioral disturbance (Acute) Reaction to Hospitalization: Accepting Medications and Allergies Allergies Allergy/AdvReac Type Severity Reaction Status Date / Time prednisone Allergy Severe Bleeding Verified 04/17/21 23:18 succinylcholine Allergy Severe Anaphylaxis Verified 04/17/21 23:17 morphine Allergy Intermediate Hives Verified 04/17/21 23:19 Home Medications Medication Instructions Recorded Confirmed Last Taken Type Aspirin 325 mg PO DAILY tablet 08/13/17 04/17/21 Unknown Rx Methadone [Dolophine] 10 mg PO Q6H 08/13/17 04/17/21 Unknown History Oxycodone HCl [oxyCODONE] 20 mg PO QID 08/13/17 04/17/21 Unknown History amLODIPine 10 mg PO DAILY 08/13/17 04/17/21 Unknown History Atorvastatin [Lipitor] 40 mg PO HS 04/17/21 04/17/21 Unknown History Gabapentin 400 mg PO QID 04/17/21 04/17/21 Unknown History Metoprolol [Lopressor TAB] 50 mg PO BID 04/17/21 04/17/21 Unknown History OLANzapine [Zyprexa] 10 mg PO QHS 04/17/21 04/17/21 Unknown History Tamsulosin [Flomax] 0.4 mg PO HS 04/17/21 04/17/21 Unknown History Venlafaxine Xr [Effexor XR] 150 mg PO DAILY 04/17/21 04/17/21 Unknown History Zolpidem [Ambien] 10 mg PO HS PRN 04/17/21 04/17/21 Unknown History Active Meds: Active Medications Amlodipine Besylate (Amlodipine 10 Mg Tab) 10 mg PO DAILY [facility] Last Admin: 04/17/21 10:45 Dose: 10 mg Documented by: Aspirin (Aspirin 325 Mg Tab) 325 mg PO DAILY [facility] Last Admin: 04/17/21 10:46 Dose: 325 mg Documented by: Atorvastatin Calcium (Atorvastatin 40 Mg Tab) 40 mg PO HS [facility] Last Admin: 04/17/21 21:00 Dose: 40 mg Documented by: Clonidine HCl (Clonidine 0.1 Mg Tab) 0.1 mg PO Q4H PRN PRN Reason: Agitation Last Admin: 04/18/21 06:13 Dose: 0.1 mg Documented by: Gabapentin (Gabapentin 400 Mg Cap) 400 mg PO QID [facility] Last Admin: 04/17/21 21:01 Dose: 400 mg Documented by: Hydroxyzine HCl (Hydroxyzine Hcl 25 Mg Tab) 25 mg PO BID [facility] Last Admin: 04/17/21 21:01 Dose: 25 mg Documented by: Metoprolol Tartrate (Metoprolol Tartrate 50 Mg Tab) 50 mg PO BID [facility] Last Admin: 04/17/21 21:02 Dose: 50 mg Documented by: Sertraline HCl (Sertraline 25 Mg Tab) 25 mg PO QDAY [facility] Last Admin: 04/17/21 14:46 Dose: 25 mg Documented by: Tamsulosin HCl (Tamsulosin 0.4 Mg Cap) 0.4 mg PO HS [facility] Last Admin: 04/17/21 21:00 Dose: 0.4 mg Documented by: Trazodone HCl (Trazodone 50 Mg Tab) 50 mg PO QHS [facility] Last Admin: 04/17/21 21:00 Dose: 50 mg Documented by: Results - Results Labs/Vitals: Laboratory Last Values WBC 5.5 K/mm3 (4.5-11.0) 04/17/21 13:02 RBC 3.66 M/mm3 (3.65-5.03) 04/17/21 13:02 Hgb 11.5 gm/dl (11.8-15.2) L 04/17/21 13:02 Hct 33.7 % (35.5-45.6) L 04/17/21 13:02 MCV 92 fl (84-94) 04/17/21 13:02 MCH 31 pg (28-32) 04/17/21 13:02 MCHC 34 % (32-34) 04/17/21 13:02 RDW 14.6 % (13.2-15.2) 04/17/21 13:02 Plt Count 146 K/mm3 (140-440) 04/17/21 13:02 Lymph % (Auto) 11.9 % (13.4-35.0) L 04/17/21 13:02 [place] % (Auto) 8.6 % (0.0-7.3) H 04/17/21 13:02 Eos % (Auto) 6.1 % (0.0-4.3) H 04/17/21 13:02 Baso % (Auto) 2.5 % (0.0-1.8) H 04/17/21 13:02 Lymph # (Auto) 0.7 K/mm3 (1.2-5.4) L 04/17/21 13:02 [place] # (Auto) 0.5 K/mm3 (0.0-0.8) 04/17/21 13:02 Eos # (Auto) 0.3 K/mm3 (0.0-0.4) 04/17/21 13:02 Baso # (Auto) 0.1 K/mm3 (0.0-0.1) 04/17/21 13:02 Seg Neutrophils % 70.9 % (40.0-70.0) H 04/17/21 13:02 Seg Neutrophils # 3.9 K/mm3 (1.8-7.7) 04/17/21 13:02 Sodium 136 mmol/L (137-145) L 04/17/21 13:02 Potassium 4.2 mmol/L (3.6-5.0) 04/17/21 13:02 Chloride 98.6 mmol/L (98-107) 04/17/21 13:02 Carbon Dioxide 30 mmol/L (22-30) 04/17/21 13:02 Anion Gap 12 mmol/L 04/17/21 13:02 BUN 15 mg/dL (9-20) 04/17/21 13:02 Creatinine 1.3 mg/dL (0.8-1.3) 04/17/21 13:02 Estimated GFR 55 ml/min 04/17/21 13:02 BUN/Creatinine Ratio 12 % 04/17/21 13:02 Glucose 132 mg/dL (75-100) H 04/17/21 13:02 Hemoglobin A1c 5.0 % (4-6) 04/17/21 13:02 Calcium 9.2 mg/dL (8.4-10.2) 04/17/21 13:02 Total Bilirubin 0.20 mg/dL (0.1-1.2) 04/17/21 13:02 AST 39 units/L (5-40) 04/17/21 13:02 ALT 24 units/L (7-56) 04/17/21 13:02 Alkaline Phosphatase 91 units/L (35-129) 04/17/21 13:02 Total Protein 6.2 g/dL (6.3-8.2) L 04/17/21 13:02 Albumin 3.7 g/dL (3.9-5) L 04/17/21 13:02 Albumin/Globulin Ratio 1.5 % 04/17/21 13:02 Triglycerides 132 mg/dL (2-149) 04/17/21 13:02 Cholesterol 98 mg/dL (50-199) 04/17/21 13:02 LDL Cholesterol Direct 33 mg/dL (50-130) L 04/17/21 13:02 HDL Cholesterol 47 mg/dL (40-59) 04/17/21 13:02 Cholesterol/HDL Ratio 2.08 % 04/17/21 13:02 TSH 4.420 mlU/mL (0.270-4.200) H 04/17/21 13:02 Last Vital Signs Temp 97.6 F 04/17/21 06:54 Pulse 60 04/18/21 06:13 Resp 20 04/17/21 06:54 BP 126/55 04/18/21 06:13 Pulse Ox 95 04/17/21 06:54 Physical Examination - Constitutional Vitals: Vital Signs Temp Pulse Resp BP Pulse Ox 97.6 F 60 20 126/55 95 04/17/21 06:54 04/18/21 06:13 04/17/21 06:54 04/18/21 06:13 04/17/21 06:54 Mental Status Exam - Vital signs Last Vital Signs Temp 97.6 F 04/17/21 06:54 Pulse 60 04/18/21 06:13 Resp 20 04/17/21 06:54 BP 126/55 04/18/21 06:13 Pulse Ox 95 04/17/21 06:54 Physician Certification - Certification Statement Physician Certification Statement: This is an acknowledgement statement that AMADA SNOW is a 65 year old M who requires inpatient psychiatric admission for treatment which could reasonably be expected to improve the patient's condition for Estimated period of time patient will need to remain in the hospital: [ ] Plan for post-hospital care: [ ]
[2021-04-18] MEDS: ASPIRIN 325 MG TAB PO SCH (12:53)
[2021-04-18] MEDS: amLODIPine 10 MG TAB PO SCH (12:55)
[2021-04-18] MEDS: SERTRALINE 25 MG TAB PO SCH (12:57)
[2021-04-18] MEDS: GABAPENTIN 400 MG CAP PO SCH ×5 (12:58→21:39)
[2021-04-18] MEDS: hydrOXYzine HCL 25 MG TAB PO SCH ×2 (13:00→21:38)
[2021-04-18] MEDS: METOPROLOL TARTRATE 50 MG TAB PO SCH ×2 (13:02→21:39)
[2021-04-18] MEDS: traZODone 50 MG TAB PO SCH (21:38)
[2021-04-18] MEDS: TAMSULOSIN 0.4 MG CAP PO SCH (21:38)
[2021-04-18] MEDS ORDERED: ZOLPIDEM 5 MG TAB PO PRN (21:57)
[2021-04-18] MEDS: oxyCODONE 5 MG TAB PO PRN (22:08)
[2021-04-19] MEDS: oxyCODONE 5 MG TAB PO PRN ×4 (02:16→21:24)
--- NOTE | 2021-04-19 07:09 | Progress Note ---
Subjective Date of service: 04/19/21 Principal diagnosis: MDD, severe, with psychotic features Subjective Comment: Per Psych Nurse: pt spent last evening in activity room interacting appropriately with peer, alert and oriented x4, calm and cooperative, depressed mood, able to make needs known, medication compliant, good appetite, c/o of back and neck pain, oxycodone 15 mg po given x2 prn pain, pt asleep at this time, no distress noted, will continue to monitor for safety. Psych Progress Patient stated he was happy that he got some of his pain meds yesterday, patient reported not sleeping well, states he feels very anxious and still feels shaky on the inside. Patient reported being worried about family issues, which has gotten very concerned and also anxious. He reported after losing 3 out of 6 kids, he has not been the same. Patient reported feeling very depressed at the moment but denies suicidal ideation auditory visual hallucination Reason for continued acute inpatient hospitalization: Patient feeling severely depressed. REVIEW OF SYSTEMS Constitutional: Negative for weight loss ENT: Negative for stridor Respiratory: Negative for cough or hemoptysis All other systems reviewed and are negative MENTAL STATUS EXAMINATION General Appearance and Behavior: Age appropriate, good hygiene, wearing appropriate clothes, good eye contact, cooperative polite with questioning. shaky Cooperation: Participating/engaged Psychomotor Behavior: Psychomotor normal Mood: "depressed, anxious" Affect and affective range: congruent with stated mood Thought Process: goal directed Thought Content: Denies Speech: Normal tone and pace Suicidal Ideation: Yes Homicidal Ideation: Denies Hallucinations: Denies Delusions: None elicited Impulse Control: Limited Insight and Judgment: Limited insight and judgment Memory: Limited Attention: Divided attention impaired Orientation: Alert, oriented, Assessment and Plan (1) MDD, severe, with psychotic features Current Visit: Yes Status: Acute Treatment Plan Continue current medications Patient admitted for inpatient psychiatric evaluation, medication adjustment and close monitoring The patient's behavior, mood, sleep and appetite will be closely monitored. Patient enrolled in individual and group therapeutic sessions and encouraged to attend. Patient provided with a safe and structured environment. Patient's physical health needs will be addressed by the Hospitalist. Hospitalist Consulted Labs including CBC, CMP, Lipid profile and Hemoglobin A1C levels ordered for baseline reference Social Assessment will be completed and the Blending Tank Helper will work with patient and family to ensure a suitable and safe disposition Medication adjustment will be made as clinically indicated Zoloft 25mg po daily Trazodone 50mg po qd Vistaril 25mg po BID Continued home medications, hold pain meds and allow hospitalist to continue Usual Wellness Taoism/Preservation: - Start Trazodone 50 mg po QHS & 50 mg po QHS PRN between 10 PM & 2 AM for insomnia - Start Melatonin 5 mg po QHS to promote circadian rhythm - Start [place]-3 for brain health, reduce impulsivity, and as adjunctive treatment for mood disorder, continue upon discharge given overall benefits. - Start B1 prophylaxis with 200 mg po for 5 days The patient agreed on the treatment plan, understood the risk, benefit, alternative treatment, potential consequence of no treatment, and gave informed consent. Estimated days: 2 Post hospital care: primary care provider, psychiatric provider Case staffed with Dr. Pittman Legal Status: Voluntary Patient Problems: Current Active Problems Medications and Allergies Allergies Allergy/AdvReac Type Severity Reaction Status Date / Time prednisone Allergy Severe Bleeding Verified 04/17/21 23:18 succinylcholine Allergy Severe Anaphylaxis Verified 04/17/21 23:17 morphine Allergy Intermediate Hives Verified 04/17/21 23:19 Home Medications Medication Instructions Recorded Confirmed Last Taken Type Aspirin 325 mg PO DAILY tablet 08/13/17 04/17/21 Unknown Rx Methadone [Dolophine] 10 mg PO Q6H 08/13/17 04/17/21 Unknown History amLODIPine 10 mg PO DAILY 08/13/17 04/17/21 Unknown History Atorvastatin [Lipitor] 40 mg PO HS 04/17/21 04/17/21 Unknown History Gabapentin 400 mg PO QID 04/17/21 04/17/21 Unknown History Metoprolol [Lopressor TAB] 50 mg PO BID 04/17/21 04/17/21 Unknown History OLANzapine [Zyprexa] 10 mg PO QHS 04/17/21 04/17/21 Unknown History Tamsulosin [Flomax] 0.4 mg PO HS 04/17/21 04/17/21 Unknown History Venlafaxine Xr [Effexor XR] 150 mg PO DAILY 04/17/21 04/17/21 Unknown History Zolpidem [Ambien] 10 mg PO HS PRN 04/17/21 04/17/21 Unknown History OXYCODONE hcl [Oxycodone] 15 mg PO Q4HR 04/18/21 04/18/21 Unknown History Active Meds: Active Medications Amlodipine Besylate (Amlodipine 10 Mg Tab) 10 mg PO DAILY [facility] Last Admin: 04/18/21 12:55 Dose: Not Given Documented by: Aspirin (Aspirin 325 Mg Tab) 325 mg PO DAILY [facility] Last Admin: 04/18/21 12:53 Dose: 325 mg Documented by: Atorvastatin Calcium (Atorvastatin 40 Mg Tab) 40 mg PO [facility] Last Admin: 04/18/21 21:38 Dose: 40 mg Documented by: Clonidine HCl (Clonidine 0.1 Mg Tab) 0.1 mg PO Q4H PRN PRN Reason: Agitation Last Admin: 04/18/21 06:13 Dose: 0.1 mg Documented by: Gabapentin (Gabapentin 400 Mg Cap) 400 mg PO QID [facility] Last Admin: 04/18/21 21:39 Dose: 400 mg Documented by: Hydroxyzine HCl (Hydroxyzine Hcl 25 Mg Tab) 25 mg PO BID [facility] Last Admin: 04/18/21 21:38 Dose: 25 mg Documented by: Metoprolol Tartrate (Metoprolol Tartrate 50 Mg Tab) 50 mg PO BID [facility] Last Admin: 04/18/21 21:39 Dose: 50 mg Documented by: Olanzapine (Olanzapine 5 Mg Tab) 5 mg PO [facility] Last Admin: 04/18/21 22:08 Dose: 5 mg Documented by: Oxycodone HCl (Oxycodone 5 Mg Tab) 15 mg PO Q4H PRN PRN Reason: Pain, Moderate (4-6) Last Admin: 04/19/21 02:16 Dose: 15 mg Documented by: Sertraline HCl (Sertraline 25 Mg Tab) 25 mg PO QDAY [facility] Last Admin: 04/18/21 12:57 Dose: 25 mg Documented by: Tamsulosin HCl (Tamsulosin 0.4 Mg Cap) 0.4 mg PO [facility] Last Admin: 04/18/21 21:38 Dose: 0.4 mg Documented by: Trazodone HCl (Trazodone 50 Mg Tab) 50 mg PO QHS [facility] Last Admin: 04/18/21 21:38 Dose: 50 mg Documented by: Venlafaxine HCl (Venlafaxine Xr 75 Mg Cap) 150 mg PO QDAY [facility] Zolpidem Tartrate (Zolpidem 5 Mg Tab) 10 mg PO QHS PRN PRN Reason: Sleep Results - Results Labs/Vitals: Laboratory Last Values WBC 5.5 K/mm3 (4.5-11.0) 04/17/21 13:02 RBC 3.66 M/mm3 (3.65-5.03) 04/17/21 13:02 Hgb 11.5 gm/dl (11.8-15.2) L 04/17/21 13:02 Hct 33.7 % (35.5-45.6) L 04/17/21 13:02 MCV 92 fl (84-94) 04/17/21 13:02 MCH 31 pg (28-32) 04/17/21 13:02 MCHC 34 % (32-34) 04/17/21 13:02 RDW 14.6 % (13.2-15.2) 04/17/21 13:02 Plt Count 146 K/mm3 (140-440) 04/17/21 13:02 Lymph % (Auto) 11.9 % (13.4-35.0) L 04/17/21 13:02 [facility] % (Auto) 8.6 % (0.0-7.3) H 04/17/21 13:02 Eos % (Auto) 6.1 % (0.0-4.3) H 04/17/21 13:02 Baso % (Auto) 2.5 % (0.0-1.8) H 04/17/21 13:02 Lymph # (Auto) 0.7 K/mm3 (1.2-5.4) L 04/17/21 13:02 [facility] # (Auto) 0.5 K/mm3 (0.0-0.8) 04/17/21 13:02 Eos # (Auto) 0.3 K/mm3 (0.0-0.4) 04/17/21 13:02 Baso # (Auto) 0.1 K/mm3 (0.0-0.1) 04/17/21 13:02 Seg Neutrophils % 70.9 % (40.0-70.0) H 04/17/21 13:02 Seg Neutrophils # 3.9 K/mm3 (1.8-7.7) 04/17/21 13:02 Sodium 136 mmol/L (137-145) L 04/17/21 13:02 Potassium 4.2 mmol/L (3.6-5.0) 04/17/21 13:02 Chloride 98.6 mmol/L (98-107) 04/17/21 13:02 Carbon Dioxide 30 mmol/L (22-30) 04/17/21 13:02 Anion Gap 12 mmol/L 04/17/21 13:02 BUN 15 mg/dL (9-20) 04/17/21 13:02 Creatinine 1.3 mg/dL (0.8-1.3) 04/17/21 13:02 Estimated GFR 55 ml/min 04/17/21 13:02 BUN/Creatinine Ratio 12 % 04/17/21 13:02 Glucose 132 mg/dL (75-100) H 04/17/21 13:02 Hemoglobin A1c 5.0 % (4-6) 04/17/21 13:02 Calcium 9.2 mg/dL (8.4-10.2) 04/17/21 13:02 Total Bilirubin 0.20 mg/dL (0.1-1.2) 04/17/21 13:02 AST 39 units/L (5-40) 04/17/21 13:02 ALT 24 units/L (7-56) 04/17/21 13:02 Alkaline Phosphatase 91 units/L (35-129) 04/17/21 13:02 Total Protein 6.2 g/dL (6.3-8.2) L 04/17/21 13:02 Albumin 3.7 g/dL (3.9-5) L 04/17/21 13:02 Albumin/Globulin Ratio 1.5 % 04/17/21 13:02 Triglycerides 132 mg/dL (2-149) 04/17/21 13:02 Cholesterol 98 mg/dL (50-199) 04/17/21 13:02 LDL Cholesterol Direct 33 mg/dL (50-130) L 04/17/21 13:02 HDL Cholesterol 47 mg/dL (40-59) 04/17/21 13:02 Cholesterol/HDL Ratio 2.08 % 04/17/21 13:02 TSH 4.420 mlU/mL (0.270-4.200) H 04/17/21 13:02 Last Vital Signs Temp 98.9 F 04/18/21 20:00 Pulse 60 04/18/21 21:39 Resp 18 04/18/21 22:08 BP 148/58 04/18/21 21:39 Pulse Ox 95 04/18/21 20:00
[2021-04-19] MEDS: amLODIPine 10 MG TAB PO SCH (10:50)
[2021-04-19] MEDS: hydrOXYzine HCL 25 MG TAB PO SCH ×2 (11:00→21:23)
[2021-04-19] MEDS: GABAPENTIN 400 MG CAP PO SCH ×4 (11:00→21:20)
[2021-04-19] MEDS: SERTRALINE 25 MG TAB PO SCH (11:00)
[2021-04-19] MEDS: VENLAFAXINE XR 75 MG CAP PO SCH (11:00)
[2021-04-19] MEDS: ASPIRIN 325 MG TAB PO SCH (11:00)
[2021-04-19] MEDS: METOPROLOL TARTRATE 50 MG TAB PO SCH ×2 (15:19→21:22)
[2021-04-19] MEDS: TAMSULOSIN 0.4 MG CAP PO SCH (21:24)
[2021-04-19] MEDS: traZODone 50 MG TAB PO SCH (21:24)
[2021-04-20] MEDS: oxyCODONE 5 MG TAB PO PRN ×2 (05:00→09:56)
--- NOTE | 2021-04-20 06:53 | Progress Note ---
Subjective Date of service: 04/20/21 Principal diagnosis: MDD, severe, with psychotic features Subjective Comment: Per Psych Nurse: Today the patient has spent most of his time in the activity room interacting appropriately with peers. He was able to talk to another peer about the loss of a child. It was a therapeutic conversation. He occasionally has thoughts of not wanting to live. He is more hopeful now that he feels his pain is being controlled. He denies hi/ah/vh. He has a good appetite and is medication compliant. Will continue to monitor patient for safety. Psych Progress Patient seen today in activity room, patient reported that he is in pain but he knows his medication is doing it now otherwise psychologically is doing fine, patient denies SI HI auditory visual hallucinations. Reason for continued acute inpatient hospitalization: Improving and positive response to treatment REVIEW OF SYSTEMS Constitutional: Negative for weight loss ENT: Negative for stridor Respiratory: Negative for cough or hemoptysis All other systems reviewed and are negative MENTAL STATUS EXAMINATION General Appearance and Behavior: Age appropriate, good hygiene, wearing appropriate clothes, good eye contact, cooperative polite with questioning. shaky Cooperation: Participating/engaged Psychomotor Behavior: Psychomotor normal Mood: "im fine" Affect and affective range: congruent with stated mood Thought Process: goal directed Thought Content: Denies Speech: Normal tone and pace Suicidal Ideation: denies Homicidal Ideation: Denies Hallucinations: Denies Delusions: None elicited Impulse Control: Limited Insight and Judgment: improved insight and judgment Memory: short term memory intact Attention: sustained Orientation: Alert, oriented, Assessment and Plan (1) MDD, severe, with psychotic features Current Visit: Yes Status: Acute Treatment Plan Continue current medications Patient admitted for inpatient psychiatric evaluation, medication adjustment and close monitoring The patient's behavior, mood, sleep and appetite will be closely monitored. Patient enrolled in individual and group therapeutic sessions and encouraged to attend. Patient provided with a safe and structured environment. Patient's physical health needs will be addressed by the Hospitalist. Hospitalist Consulted Labs including CBC, CMP, Lipid profile and Hemoglobin A1C levels ordered for baseline reference Social Assessment will be completed and the Specialty Finishing Utility Person will work with patient and family to ensure a suitable and safe disposition Medication adjustment will be made as clinically indicated Zoloft 25mg po daily Trazodone 50mg po qd Vistaril 25mg po BID Continued home medications, hold pain meds and allow hospitalist to continue Usual Wellness Rastafarian/Preservation: - Start Trazodone 50 mg po QHS & 50 mg po QHS PRN between 10 PM & 2 AM for in somnia - Start Melatonin 5 mg po QHS to promote circadian rhythm - Start [place]-3 for brain health, reduce impulsivity, and as adjunctive treatment for mood disorder, continue upon discharge given overall benefits. - Start B1 prophylaxis with 200 mg po for 5 days The patient agreed on the treatment plan, understood the risk, benefit, alternative treatment, potential consequence of no treatment, and gave informed consent. Estimated days: 2 Post hospital care: primary care provider, psychiatric provider Case staffed with Dr. Pittman Legal Status: Voluntary Patient Problems: Current Active Problems Medications and Allergies Allergies Allergy/AdvReac Type Severity Reaction Status Date / Time prednisone Allergy Severe Bleeding Verified 04/17/21 23:18 succinylcholine Allergy Severe Anaphylaxis Verified 04/17/21 23:17 morphine Allergy Intermediate Hives Verified 04/17/21 23:19 Home Medications Medication Instructions Recorded Confirmed Last Taken Type Aspirin 325 mg PO DAILY tablet 08/13/17 04/17/21 Unknown Rx Methadone [Dolophine] 10 mg PO Q6H 08/13/17 04/17/21 Unknown History amLODIPine 10 mg PO DAILY 08/13/17 04/17/21 Unknown History Atorvastatin [Lipitor] 40 mg PO HS 04/17/21 04/17/21 Unknown History Gabapentin 400 mg PO QID 04/17/21 04/17/21 Unknown History Metoprolol [Lopressor TAB] 50 mg PO BID 04/17/21 04/17/21 Unknown History OLANzapine [Zyprexa] 10 mg PO QHS 04/17/21 04/17/21 Unknown History Tamsulosin [Flomax] 0.4 mg PO HS 04/17/21 04/17/21 Unknown History Venlafaxine Xr [Effexor XR] 150 mg PO DAILY 04/17/21 04/17/21 Unknown History Zolpidem [Ambien] 10 mg PO HS PRN 04/17/21 04/17/21 Unknown History OXYCODONE hcl [Oxycodone] 15 mg PO Q4HR 04/18/21 04/18/21 Unknown History Active Meds: Active Medications Amlodipine Besylate (Amlodipine 10 Mg Tab) 10 mg PO DAILY [facility] Last Admin: 04/19/21 10:50 Dose: Not Given Documented by: Aspirin (Aspirin 325 Mg Tab) 325 mg PO DAILY [facility] Last Admin: 04/19/21 11:00 Dose: 325 mg Documented by: Atorvastatin Calcium (Atorvastatin 40 Mg Tab) 40 mg PO [facility] Last Admin: 04/19/21 21:24 Dose: 40 mg Documented by: Clonidine HCl (Clonidine 0.1 Mg Tab) 0.1 mg PO Q4H PRN PRN Reason: Agitation Last Admin: 04/18/21 06:13 Dose: 0.1 mg Documented by: Gabapentin (Gabapentin 400 Mg Cap) 400 mg PO QID [facility] Last Admin: 04/19/21 21:20 Dose: 400 mg Documented by: Hydroxyzine HCl (Hydroxyzine Hcl 25 Mg Tab) 25 mg PO BID [facility] Last Admin: 04/19/21 21:23 Dose: 25 mg Documented by: Metoprolol Tartrate (Metoprolol Tartrate 50 Mg Tab) 50 mg PO BID [facility] Last Admin: 04/19/21 21:22 Dose: Not Given Documented by: Olanzapine (Olanzapine 5 Mg Tab) 5 mg PO [facility] Last Admin: 04/19/21 21:20 Dose: 5 mg Documented by: Oxycodone HCl (Oxycodone 5 Mg Tab) 15 mg PO Q4H PRN PRN Reason: Pain, Moderate (4-6) Last Admin: 04/20/21 05:00 Dose: 15 mg Documented by: Sertraline HCl (Sertraline 25 Mg Tab) 25 mg PO QDAY [facility] Last Admin: 04/19/21 11:00 Dose: 25 mg Documented by: Tamsulosin HCl (Tamsulosin 0.4 Mg Cap) 0.4 mg PO [facility] Last Admin: 04/19/21 21:24 Dose: 0.4 mg Documented by: Trazodone HCl (Trazodone 50 Mg Tab) 50 mg PO QHS [facility] Last Admin: 04/19/21 21:24 Dose: 50 mg Documented by: Venlafaxine HCl (Venlafaxine Xr 75 Mg Cap) 150 mg PO QDAY [facility] Last Admin: 04/19/21 11:00 Dose: 150 mg Documented by: Zolpidem Tartrate (Zolpidem 5 Mg Tab) 10 mg PO QHS PRN PRN Reason: Sleep Results - Results Labs/Vitals: Laboratory Last Values WBC 5.5 K/mm3 (4.5-11.0) 04/17/21 13:02 RBC 3.66 M/mm3 (3.65-5.03) 04/17/21 13:02 Hgb 11.5 gm/dl (11.8-15.2) L 04/17/21 13:02 Hct 33.7 % (35.5-45.6) L 04/17/21 13:02 MCV 92 fl (84-94) 04/17/21 13:02 MCH 31 pg (28-32) 04/17/21 13:02 MCHC 34 % (32-34) 04/17/21 13:02 RDW 14.6 % (13.2-15.2) 04/17/21 13:02 Plt Count 146 K/mm3 (140-440) 04/17/21 13:02 Lymph % (Auto) 11.9 % (13.4-35.0) L 04/17/21 13:02 [place] % (Auto) 8.6 % (0.0-7.3) H 04/17/21 13:02 Eos % (Auto) 6.1 % (0.0-4.3) H 04/17/21 13:02 Baso % (Auto) 2.5 % (0.0-1.8) H 04/17/21 13:02 Lymph # (Auto) 0.7 K/mm3 (1.2-5.4) L 04/17/21 13:02 [place] # (Auto) 0.5 K/mm3 (0.0-0.8) 04/17/21 13:02 Eos # (Auto) 0.3 K/mm3 (0.0-0.4) 04/17/21 13:02 Baso # (Auto) 0.1 K/mm3 (0.0-0.1) 04/17/21 13:02 Seg Neutrophils % 70.9 % (40.0-70.0) H 04/17/21 13:02 Seg Neutrophils # 3.9 K/mm3 (1.8-7.7) 04/17/21 13:02 Sodium 136 mmol/L (137-145) L 04/17/21 13:02 Potassium 4.2 mmol/L (3.6-5.0) 04/17/21 13:02 Chloride 98.6 mmol/L (98-107) 04/17/21 13:02 Carbon Dioxide 30 mmol/L (22-30) 04/17/21 13:02 Anion Gap 12 mmol/L 04/17/21 13:02 BUN 15 mg/dL (9-20) 04/17/21 13:02 Creatinine 1.3 mg/dL (0.8-1.3) 04/17/21 13:02 Estimated GFR 55 ml/min 04/17/21 13:02 BUN/Creatinine Ratio 12 % 04/17/21 13:02 Glucose 132 mg/dL (75-100) H 04/17/21 13:02 Hemoglobin A1c 5.0 % (4-6) 04/17/21 13:02 Calcium 9.2 mg/dL (8.4-10.2) 04/17/21 13:02 Total Bilirubin 0.20 mg/dL (0.1-1.2) 04/17/21 13:02 AST 39 units/L (5-40) 04/17/21 13:02 ALT 24 units/L (7-56) 04/17/21 13:02 Alkaline Phosphatase 91 units/L (35-129) 04/17/21 13:02 Total Protein 6.2 g/dL (6.3-8.2) L 04/17/21 13:02 Albumin 3.7 g/dL (3.9-5) L 04/17/21 13:02 Albumin/Globulin Ratio 1.5 % 04/17/21 13:02 Triglycerides 132 mg/dL (2-149) 04/17/21 13:02 Cholesterol 98 mg/dL (50-199) 04/17/21 13:02 LDL Cholesterol Direct 33 mg/dL (50-130) L 04/17/21 13:02 HDL Cholesterol 47 mg/dL (40-59) 04/17/21 13:02 Cholesterol/HDL Ratio 2.08 % 04/17/21 13:02 TSH 4.420 mlU/mL (0.270-4.200) H 04/17/21 13:02 Last Vital Signs Temp 98.7 F 04/19/21 19:50 Pulse 50 L 04/19/21 21:22 Resp 20 04/19/21 21:24 BP 120/43 04/19/21 21:22 Pulse Ox 94 04/19/21 19:50
[2021-04-20] MEDS: ASPIRIN 325 MG TAB PO SCH (09:18)
[2021-04-20] MEDS: GABAPENTIN 400 MG CAP PO SCH ×4 (09:18→22:57)
[2021-04-20] MEDS: hydrOXYzine HCL 25 MG TAB PO SCH ×2 (09:18→22:57)
[2021-04-20] MEDS: VENLAFAXINE XR 75 MG CAP PO SCH (09:18)
[2021-04-20] MEDS: SERTRALINE 25 MG TAB PO SCH (09:18)
[2021-04-20] MEDS: METOPROLOL TARTRATE 50 MG TAB PO SCH ×2 (09:19→22:50)
[2021-04-20] MEDS: amLODIPine 10 MG TAB PO SCH (09:19)
[2021-04-20] MEDS: HYDROmorphone 2 MG TAB PO SCH ×2 (15:17→22:58)
[2021-04-20] MEDS: TAMSULOSIN 0.4 MG CAP PO SCH (22:57)
--- NOTE | 2021-04-21 07:56 | Progress Note ---
Subjective Date of service: 04/21/21 Principal diagnosis: MDD, severe, with psychotic features Subjective Comment: Per Psych Nurse: Patient spent the day drowsy and nodding off. He has been focused only on pain medications. After his pain medication was changed this afternoon he could hardly hold his eyes open and went to bed/sleep. His appetite is good and he is medication compliant. He denies si/hi/ah/vh. Will continue to monitor patient for safety. Psych Progress Patient seen this AM, complains of HIP pain but otherwise has no acute psychiatric complaints. He endorses resting and sleeping well. Reason for continued acute inpatient hospitalization: Improving and positive response to treatment REVIEW OF SYSTEMS Constitutional: Negative for weight loss ENT: Negative for stridor Respiratory: Negative for cough or hemoptysis All other systems reviewed and are negative MENTAL STATUS EXAMINATION General Appearance and Behavior: Age appropriate, good hygiene, wearing appropriate clothes, good eye contact, cooperative polite with questioning. shaky Cooperation: Participating/engaged Psychomotor Behavior: Psychomotor normal Mood: "im fine" Affect and affective range: congruent with stated mood Thought Process: goal directed Thought Content: Denies Speech: Normal tone and pace Suicidal Ideation: denies Homicidal Ideation: Denies Hallucinations: Denies Delusions: None elicited Impulse Control: Limited Insight and Judgment: improved insight and judgment Memory: short term memory intact Attention: sustained Orientation: Alert, oriented, Assessment and Plan (1) MDD, severe, with psychotic features Current Visit: Yes Status: Acute Treatment Plan Continue current medications Patient admitted for inpatient psychiatric evaluation, medication adjustment and close monitoring The patient's behavior, mood, sleep and appetite will be closely monitored. Patient enrolled in individual and group therapeutic sessions and encouraged to attend. Patient provided with a safe and structured environment. Patient's physical health needs will be addressed by the Hospitalist. Hospit alist Consulted Labs including CBC, CMP, Lipid profile and Hemoglobin A1C levels ordered for baseline reference Social Assessment will be completed and the Sales Support Representative will work with patient and family to ensure a suitable and safe disposition Medication adjustment will be made as clinically indicated Zoloft 25mg po daily Trazodone 50mg po qd Vistaril 25mg po BID Continued home medications, hold pain meds and allow hospitalist to continue Usual Wellness Jew/Preservation: - Start Trazodone 50 mg po QHS & 50 mg po QHS PRN between 10 PM & 2 AM for insomnia - Start Melatonin 5 mg po QHS to promote circadian rhythm - Start [place]-3 for brain health, reduce impulsivity, and as adjunctive treatment for mood disorder, continue upon discharge given overall benefits. - Start B1 prophylaxis with 200 mg po for 5 days The patient agreed on the treatment plan, understood the risk, benefit, alternative treatment, potential consequence of no treatment, and gave informed consent. Estimated days: 2 Post hospital care: primary care provider, psychiatric provider Case staffed with Dr. Pittman Legal Status: Voluntary Patient Problems: Current Active Problems Medications and Allergies Allergies Allergy/AdvReac Type Severity Reaction Status Date / Time prednisone Allergy Severe Bleeding Verified 04/17/21 23:18 succinylcholine Allergy Severe Anaphylaxis Verified 04/17/21 23:17 morphine Allergy Intermediate Hives Verified 04/17/21 23:19 Home Medications Medication Instructions Recorded Confirmed Last Taken Type Aspirin 325 mg PO DAILY tablet 08/13/17 04/17/21 Unknown Rx Methadone [Dolophine] 10 mg PO Q6H 08/13/17 04/17/21 Unknown History amLODIPine 10 mg PO DAILY 08/13/17 04/17/21 Unknown History Atorvastatin [Lipitor] 40 mg PO HS 04/17/21 04/17/21 Unknown History Gabapentin 400 mg PO QID 04/17/21 04/17/21 Unknown History Metoprolol [Lopressor TAB] 50 mg PO BID 04/17/21 04/17/21 Unknown History OLANzapine [Zyprexa] 10 mg PO QHS 04/17/21 04/17/21 Unknown History Tamsulosin [Flomax] 0.4 mg PO HS 04/17/21 04/17/21 Unknown History Venlafaxine Xr [Effexor XR] 150 mg PO DAILY 04/17/21 04/17/21 Unknown History Zolpidem [Ambien] 10 mg PO HS PRN 04/17/21 04/17/21 Unknown History OXYCODONE hcl [Oxycodone] 15 mg PO Q4HR 04/18/21 04/18/21 Unknown History Active Meds: Active Medications Amlodipine Besylate (Amlodipine 10 Mg Tab) 10 mg PO DAILY [facility] Last Admin: 04/20/21 09:19 Dose: Not Given Documented by: Aspirin (Aspirin 325 Mg Tab) 325 mg PO DAILY [facility] Last Admin: 04/20/21 09:18 Dose: 325 mg Documented by: Atorvastatin Calcium (Atorvastatin 40 Mg Tab) 40 mg PO [facility] Last Admin: 04/20/21 22:57 Dose: 40 mg Documented by: Clonidine HCl (Clonidine 0.1 Mg Tab) 0.1 mg PO Q4H PRN PRN Reason: Agitation Last Admin: 04/18/21 06:13 Dose: 0.1 mg Documented by: Gabapentin (Gabapentin 400 Mg Cap) 400 mg PO QID [facility] Last Admin: 04/20/21 22:57 Dose: 400 mg Documented by: Hydromorphone HCl (Hydromorphone 2 Mg Tab) 1 mg PO Q12HR [facility] Last Admin: 04/20/21 22:58 Dose: 1 mg Documented by: Hydroxyzine HCl (Hydroxyzine Hcl 25 Mg Tab) 25 mg PO BID [facility] Last Admin: 04/20/21 22:57 Dose: 25 mg Documented by: Metoprolol Tartrate (Metoprolol Tartrate 50 Mg Tab) 50 mg PO BID [facility] Last Admin: 04/20/21 22:50 Dose: Not Given Documented by: Olanzapine (Olanzapine 5 Mg Tab) 5 mg PO [facility] Last Admin: 04/20/21 22:57 Dose: 5 mg Documented by: Sertraline HCl (Sertraline 25 Mg Tab) 25 mg PO QDAY [facility] Last Admin: 04/20/21 09:18 Dose: 25 mg Documented by: Tamsulosin HCl (Tamsulosin 0.4 Mg Cap) 0.4 mg PO [facility] Last Admin: 04/20/21 22:57 Dose: 0.4 mg Documented by: Trazodone HCl (Trazodone 100 Mg Tab) 50 mg PO QHS [facility] Venlafaxine HCl (Venlafaxine Xr 75 Mg Cap) 150 mg PO QDAY [facility] Last Admin: 04/20/21 09:18 Dose: 150 mg Documented by: Zolpidem Tartrate (Zolpidem 5 Mg Tab) 10 mg PO QHS PRN PRN Reason: Sleep Results - Results Labs/Vitals: Laboratory Last Values WBC 5.5 K/mm3 (4.5-11.0) 04/17/21 13:02 RBC 3.66 M/mm3 (3.65-5.03) 04/17/21 13:02 Hgb 11.5 gm/dl (11.8-15.2) L 04/17/21 13:02 Hct 33.7 % (35.5-45.6) L 04/17/21 13:02 MCV 92 fl (84-94) 04/17/21 13:02 MCH 31 pg (28-32) 04/17/21 13:02 MCHC 34 % (32-34) 04/17/21 13:02 RDW 14.6 % (13.2-15.2) 04/17/21 13:02 Plt Count 146 K/mm3 (140-440) 04/17/21 13:02 Lymph % (Auto) 11.9 % (13.4-35.0) L 04/17/21 13:02 [place] % (Auto) 8.6 % (0.0-7.3) H 04/17/21 13:02 Eos % (Auto) 6.1 % (0.0-4.3) H 04/17/21 13:02 Baso % (Auto) 2.5 % (0.0-1.8) H 04/17/21 13:02 Lymph # (Auto) 0.7 K/mm3 (1.2-5.4) L 04/17/21 13:02 [place] # (Auto) 0.5 K/mm3 (0.0-0.8) 04/17/21 13:02 Eos # (Auto) 0.3 K/mm3 (0.0-0.4) 04/17/21 13:02 Baso # (Auto) 0.1 K/mm3 (0.0-0.1) 04/17/21 13:02 Seg Neutrophils % 70.9 % (40.0-70.0) H 04/17/21 13:02 Seg Neutrophils # 3.9 K/mm3 (1.8-7.7) 04/17/21 13:02 Sodium 136 mmol/L (137-145) L 04/17/21 13:02 Potassium 4.2 mmol/L (3.6-5.0) 04/17/21 13:02 Chloride 98.6 mmol/L (98-107) 04/17/21 13:02 Carbon Dioxide 30 mmol/L (22-30) 04/17/21 13:02 Anion Gap 12 mmol/L 04/17/21 13:02 BUN 15 mg/dL (9-20) 04/17/21 13:02 Creatinine 1.3 mg/dL (0.8-1.3) 04/17/21 13:02 Estimated GFR 55 ml/min 04/17/21 13:02 BUN/Creatinine Ratio 12 % 04/17/21 13:02 Glucose 132 mg/dL (75-100) H 04/17/21 13:02 Hemoglobin A1c 5.0 % (4-6) 04/17/21 13:02 Calcium 9.2 mg/dL (8.4-10.2) 04/17/21 13:02 Total Bilirubin 0.20 mg/dL (0.1-1.2) 04/17/21 13:02 AST 39 units/L (5-40) 04/17/21 13:02 ALT 24 units/L (7-56) 04/17/21 13:02 Alkaline Phosphatase 91 units/L (35-129) 04/17/21 13:02 Total Protein 6.2 g/dL (6.3-8.2) L 04/17/21 13:02 Albumin 3.7 g/dL (3.9-5) L 04/17/21 13:02 Albumin/Globulin Ratio 1.5 % 04/17/21 13:02 Triglycerides 132 mg/dL (2-149) 04/17/21 13:02 Cholesterol 98 mg/dL (50-199) 04/17/21 13:02 LDL Cholesterol Direct 33 mg/dL (50-130) L 04/17/21 13:02 HDL Cholesterol 47 mg/dL (40-59) 04/17/21 13:02 Cholesterol/HDL Ratio 2.08 % 04/17/21 13:02 TSH 4.420 mlU/mL (0.270-4.200) H 04/17/21 13:02 Last Vital Signs Temp 98.5 F 04/20/21 19:24 Pulse 56 L 04/20/21 22:50 Resp 16 04/20/21 19:24 BP 136/54 04/20/21 22:50 Pulse Ox 95 04/20/21 19:24
[2021-04-21] MEDS: GABAPENTIN 400 MG CAP PO SCH ×4 (11:58→21:22)
[2021-04-21] MEDS: ASPIRIN 325 MG TAB PO SCH (11:58)
[2021-04-21] MEDS: SERTRALINE 25 MG TAB PO SCH (11:58)
[2021-04-21] MEDS: VENLAFAXINE XR 75 MG CAP PO SCH (11:58)
[2021-04-21] MEDS: hydrOXYzine HCL 25 MG TAB PO SCH ×2 (11:59→21:19)
[2021-04-21] MEDS: METOPROLOL TARTRATE 50 MG TAB PO SCH ×2 (11:59→21:24)
[2021-04-21] MEDS: amLODIPine 10 MG TAB PO SCH (12:02)
[2021-04-21] MEDS: HYDROmorphone 2 MG TAB PO SCH ×2 (12:04→21:20)
[2021-04-21] MEDS: PANTOPRAZOLE 40 MG TAB PO SCH (19:22)
[2021-04-21] MEDS: traZODone 100 MG TAB PO SCH ×2 (19:23→21:19)
[2021-04-21] MEDS: TAMSULOSIN 0.4 MG CAP PO SCH (21:21)
--- NOTE | 2021-04-22 07:55 | Progress Note ---
Subjective Date of service: 04/22/21 Principal diagnosis: MDD, severe, with psychotic features Subjective Comment: Per Psych Nurse: pt spent last evening in activity room watching television, alert and oriented x4, calm and cooperative, depressed mood, denies si/hi, denies a/v/h, medication compliant, good appetite, slept all night, no distress noted, will continue to monitor for safety. Psych Progress Patient describes a good and stable mood, denies being depressed or excessively nervous. Patient eats and sleeps well. Patient denies panic attacks, recurrent nightmares or flashbacks. Patient denies symptoms suggestive of OCD or PTSD. Patient denies hallucinations, paranoia, thought interference and no features suggestive of hypomania or blair. Patiently completely denies suicidal or homicidal thoughts. Reason for continued acute inpatient hospitalization: Pt ready for discharged REVIEW OF SYSTEMS Constitutional: Negative for weight loss ENT: Negative for stridor Respiratory: Negative for cough or hemoptysis All other systems reviewed and are negative MENTAL STATUS EXAMINATION General Appearance and Behavior: Age appropriate, good hygiene, wearing appropriate clothes, good eye contact, cooperative polite with questioning. shaky Cooperation: Participating/engaged Psychomotor Behavior: Psychomotor normal Mood: "im fine" Affect and affective range: congruent with stated mood Thought Process: goal directed Thought Content: Denies Speech: Normal tone and pace Suicidal Ideation: denies Homicidal Ideation: Denies Hallucinations: Denies Delusions: None elicited Impulse Control: Limited Insight and Judgment: improved insight and judgment Memory: short term memory intact Attention: sustained Orientation: Alert, oriented, Assessment and Plan (1) MDD, severe, with psychotic features Current Visit: Yes Status: Acute Treatment Plan Continue current medications Patient admitted for inpatient psychiatric evaluation, medication adjustment and close monitoring The patient's behavior, mood, sleep and appetite will be closely monitored. Patient enrolled in individual and group therapeutic sessions and encouraged to attend. Patient provided with a safe and structured environment. Patient's physical health needs will be addressed by the Hospitalist. Hospitalist Consulted Labs including CBC, CMP, Lipid profile and Hemoglobin A1C levels ordered for baseline reference Social Assessment will be completed and the Multiple Drum Sander will work with patient and family to ensure a suitable and safe disposition Medication adjustment will be made as clinically indicated Continued home medications. Usual Wellness Pentecostalism/Preservation: - Start Trazodone 50 mg po QHS & 50 mg po QHS PRN between 10 PM & 2 AM for insomnia - Start Melatonin 5 mg po QHS to promote circadian rhythm - Start [place]-3 for brain health, reduce impulsivity, and as adjunctive treatment for mood disorder, continue upon discharge given overall benefits. - Start B1 prophylaxis with 200 mg po for 5 days The patient agreed on the treatment plan, understood the risk, benefit, alternative treatment, potential consequence of no treatment, and gave informed consent. Estimated days: 2 Post hospital care: primary care provider, psychiatric provider Case staffed with Dr. Pittman Legal Status: Voluntary Patient Problems: Current Active Problems Medications and Allergies Allergies Allergy/AdvReac Type Severity Reaction Status Date / Time prednisone Allergy Severe Bleeding Verified 04/17/21 23:18 succinylcholine Allergy Severe Anaphylaxis Verified 04/17/21 23:17 morphine Allergy Intermediate Hives Verified 04/17/21 23:19 Home Medications Medication Instructions Recorded Confirmed Last Taken Type Aspirin 325 mg PO DAILY tablet 08/13/17 04/17/21 Unknown Rx Methadone [Dolophine] 10 mg PO Q6H 08/13/17 04/17/21 Unknown History amLODIPine 10 mg PO DAILY 08/13/17 04/17/21 Unknown History Atorvastatin [Lipitor] 40 mg PO HS 04/17/21 04/17/21 Unknown History Gabapentin 400 mg PO QID 04/17/21 04/17/21 Unknown History Metoprolol [Lopressor TAB] 50 mg PO BID 04/17/21 04/17/21 Unknown History OLANzapine [Zyprexa] 10 mg PO QHS 04/17/21 04/17/21 Unknown History Tamsulosin [Flomax] 0.4 mg PO HS 04/17/21 04/17/21 Unknown History Venlafaxine Xr [Effexor XR] 150 mg PO DAILY 04/17/21 04/17/21 Unknown History Zolpidem [Ambien] 10 mg PO HS PRN 04/17/21 04/17/21 Unknown History OXYCODONE hcl [Oxycodone] 15 mg PO Q4HR 04/18/21 04/18/21 Unknown History Active Meds: Active Medications Amlodipine Besylate (Amlodipine 10 Mg Tab) 10 mg PO DAILY [facility] Last Admin: 04/21/21 12:02 Dose: Not Given Documented by: Aspirin (Aspirin 325 Mg Tab) 325 mg PO DAILY [facility] Last Admin: 04/21/21 11:58 Dose: 325 mg Documented by: Atorvastatin Calcium (Atorvastatin 40 Mg Tab) 40 mg PO HS [facility] Last Admin: 04/21/21 21:22 Dose: 40 mg Documented by: Clonidine HCl (Clonidine 0.1 Mg Tab) 0.1 mg PO Q4H PRN PRN Reason: Agitation Last Admin: 04/18/21 06:13 Dose: 0.1 mg Documented by: Gabapentin (Gabapentin 400 Mg Cap) 400 mg PO QID [facility] Last Admin: 04/21/21 21:22 Dose: 400 mg Documented by: Hydromorphone HCl (Hydromorphone 2 Mg Tab) 1 mg PO Q12HR [facility] Last Admin: 04/21/21 21:20 Dose: 1 mg Documented by: Hydroxyzine HCl (Hydroxyzine Hcl 25 Mg Tab) 25 mg PO BID [facility] Last Admin: 04/21/21 21:19 Dose: 25 mg Documented by: Metoprolol Tartrate (Metoprolol Tartrate 50 Mg Tab) 50 mg PO BID [facility] Last Admin: 04/21/21 21:24 Dose: Not Given Documented by: Olanzapine (Olanzapine 5 Mg Tab) 5 mg PO [facility] Last Admin: 04/21/21 21:22 Dose: 5 mg Documented by: Pantoprazole Sodium (Pantoprazole 40 Mg Tab) 40 mg PO DAILY [facility] Last Admin: 04/21/21 19:22 Dose: 40 mg Documented by: Sertraline HCl (Sertraline 25 Mg Tab) 25 mg PO QDAY [facility] Last Admin: 04/21/21 11:58 Dose: 25 mg Documented by: Tamsulosin HCl (Tamsulosin 0.4 Mg Cap) 0.4 mg PO [facility] Last Admin: 04/21/21 21:21 Dose: 0.4 mg Documented by: Trazodone HCl (Trazodone 100 Mg Tab) 50 mg PO QHS [facility] Last Admin: 04/21/21 21:19 Dose: 50 mg Documented by: Venlafaxine HCl (Venlafaxine Xr 75 Mg Cap) 150 mg PO QDAY [facility] Last Admin: 04/21/21 11:58 Dose: 150 mg Documented by: Zolpidem Tartrate (Zolpidem 5 Mg Tab) 10 mg PO QHS PRN PRN Reason: Sleep Results - Results Labs/Vitals: Laboratory Last Values WBC 5.5 K/mm3 (4.5-11.0) 04/17/21 13:02 RBC 3.66 M/mm3 (3.65-5.03) 04/17/21 13:02 Hgb 11.5 gm/dl (11.8-15.2) L 04/17/21 13:02 Hct 33.7 % (35.5-45.6) L 04/17/21 13:02 MCV 92 fl (84-94) 04/17/21 13:02 MCH 31 pg (28-32) 04/17/21 13:02 MCHC 34 % (32-34) 04/17/21 13:02 RDW 14.6 % (13.2-15.2) 04/17/21 13:02 Plt Count 146 K/mm3 (140-440) 04/17/21 13:02 Lymph % (Auto) 11.9 % (13.4-35.0) L 04/17/21 13:02 [place] % (Auto) 8.6 % (0.0-7.3) H 04/17/21 13:02 Eos % (Auto) 6.1 % (0.0-4.3) H 04/17/21 13:02 Baso % (Auto) 2.5 % (0.0-1.8) H 04/17/21 13:02 Lymph # (Auto) 0.7 K/mm3 (1.2-5.4) L 04/17/21 13:02 [place] # (Auto) 0.5 K/mm3 (0.0-0.8) 04/17/21 13:02 Eos # (Auto) 0.3 K/mm3 (0.0-0.4) 04/17/21 13:02 Baso # (Auto) 0.1 K/mm3 (0.0-0.1) 04/17/21 13:02 Seg Neutrophils % 70.9 % (40.0-70.0) H 04/17/21 13:02 Seg Neutrophils # 3.9 K/mm3 (1.8-7.7) 04/17/21 13:02 Sodium 136 mmol/L (137-145) L 04/17/21 13:02 Potassium 4.2 mmol/L (3.6-5.0) 04/17/21 13:02 Chloride 98.6 mmol/L (98-107) 04/17/21 13:02 Carbon Dioxide 30 mmol/L (22-30) 04/17/21 13:02 Anion Gap 12 mmol/L 04/17/21 13:02 BUN 15 mg/dL (9-20) 04/17/21 13:02 Creatinine 1.3 mg/dL (0.8-1.3) 04/17/21 13:02 Estimated GFR 55 ml/min 04/17/21 13:02 BUN/Creatinine Ratio 12 % 04/17/21 13:02 Glucose 132 mg/dL (75-100) H 04/17/21 13:02 Hemoglobin A1c 5.0 % (4-6) 04/17/21 13:02 Calcium 9.2 mg/dL (8.4-10.2) 04/17/21 13:02 Total Bilirubin 0.20 mg/dL (0.1-1.2) 04/17/21 13:02 AST 39 units/L (5-40) 04/17/21 13:02 ALT 24 units/L (7-56) 04/17/21 13:02 Alkaline Phosphatase 91 units/L (35-129) 04/17/21 13:02 Total Protein 6.2 g/dL (6.3-8.2) L 04/17/21 13:02 Albumin 3.7 g/dL (3.9-5) L 04/17/21 13:02 Albumin/Globulin Ratio 1.5 % 04/17/21 13:02 Triglycerides 132 mg/dL (2-149) 04/17/21 13:02 Cholesterol 98 mg/dL (50-199) 04/17/21 13:02 LDL Cholesterol Direct 33 mg/dL (50-130) L 04/17/21 13:02 HDL Cholesterol 47 mg/dL (40-59) 04/17/21 13:02 Cholesterol/HDL Ratio 2.08 % 04/17/21 13:02 TSH 4.420 mlU/mL (0.270-4.200) H 04/17/21 13:02 Last Vital Signs Temp 98.4 F 04/21/21 22:00 Pulse 47 L 04/21/21 22:00 Resp 18 04/21/21 22:00 BP 126/44 04/21/21 22:00 Pulse Ox 95 04/21/21 22:00
[2021-04-22] MEDS: amLODIPine 10 MG TAB PO SCH (09:17)
[2021-04-22] MEDS: SERTRALINE 25 MG TAB PO SCH (09:18)
[2021-04-22] MEDS: GABAPENTIN 400 MG CAP PO SCH ×3 (09:18→18:54)
[2021-04-22] MEDS: ASPIRIN 325 MG TAB PO SCH (09:18)
--- NOTE | 2021-04-22 09:18 | Discharge Summary ---
Providers - Providers Date of Admission: 04/17/21 06:04 Date of discharge: 04/22/21 Attending physician: DAGO BRAGA MD 04/16/21 13:15 Consult to Physician [CONS] Routine Comment: Consulting Provider: ROBBIE CANO Physician Instructions: Reason For Exam: manage medical condtions Primary care physician: FINANCE PROFESSOR Hospitalization Reason for admission: MDD Condition: Good Hospital course: The patient was provided inpatient psychiatric treatment with safe and supportive environment, group/individual therapy, psychiatric medication, medication adjustment, adverse effect monitor, medical evaluation, medical treatment, social service assessment, social support meeting, placement assessment and psycho-education. The patients mood, cognition, behavior, motivation, compliance to treatment and appreciation on family/social support are improved and stabilized. At the time of discharge, the patient had no suicidal ideas, no homicidal ideas, no aggressive thoughts, no endangering behavior and no debilitating adverse effects. The patient agreed on the treatment plan, understood the risk, benefit, alternative treatment, potential consequence of no treatment, and gave informed consent. Over 35 minutes spent for discharge process, education and behavioral counselling. Disposition: DC-01 TO HOME OR SELFCARE Allergies/Adverse Reactions: Allergies prednisone Allergy (Severe, Verified 04/17/21 23:18) Bleeding succinylcholine Allergy (Severe, Verified 04/17/21 23:17) Anaphylaxis morphine Allergy (Intermediate, Verified 04/17/21 23:19) Hives Vital Signs: Last Vital Signs Temp 98.4 F 04/21/21 22:00 Pulse 47 L 04/21/21 22:00 Resp 18 04/21/21 22:00 BP 126/44 04/21/21 22:00 Pulse Ox 95 04/21/21 22:00 Last Lab: Laboratory Last Values WBC 5.5 K/mm3 (4.5-11.0) 04/17/21 13:02 RBC 3.66 M/mm3 (3.65-5.03) 04/17/21 13:02 Hgb 11.5 gm/dl (11.8-15.2) L 04/17/21 13:02 Hct 33.7 % (35.5-45.6) L 04/17/21 13:02 MCV 92 fl (84-94) 04/17/21 13:02 MCH 31 pg (28-32) 04/17/21 13:02 MCHC 34 % (32-34) 04/17/21 13:02 RDW 14.6 % (13.2-15.2) 04/17/21 13:02 Plt Count 146 K/mm3 (140-440) 04/17/21 13:02 Lymph % (Auto) 11.9 % (13.4-35.0) L 04/17/21 13:02 [place] % (Auto) 8.6 % (0.0-7.3) H 04/17/21 13:02 Eos % (Auto) 6.1 % (0.0-4.3) H 04/17/21 13:02 Baso % (Auto) 2.5 % (0.0-1.8) H 04/17/21 13:02 Lymph # (Auto) 0.7 K/mm3 (1.2-5.4) L 04/17/21 13:02 [place] # (Auto) 0.5 K/mm3 (0.0-0.8) 04/17/21 13:02 Eos # (Auto) 0.3 K/mm3 (0.0-0.4) 04/17/21 13:02 Baso # (Auto) 0.1 K/mm3 (0.0-0.1) 04/17/21 13:02 Seg Neutrophils % 70.9 % (40.0-70.0) H 04/17/21 13:02 Seg Neutrophils # 3.9 K/mm3 (1.8-7.7) 04/17/21 13:02 Sodium 136 mmol/L (137-145) L 04/17/21 13:02 Potassium 4.2 mmol/L (3.6-5.0) 04/17/21 13:02 Chloride 98.6 mmol/L (98-107) 04/17/21 13:02 Carbon Dioxide 30 mmol/L (22-30) 04/17/21 13:02 Anion Gap 12 mmol/L 04/17/21 13:02 BUN 15 mg/dL (9-20) 04/17/21 13:02 Creatinine 1.3 mg/dL (0.8-1.3) 04/17/21 13:02 Estimated GFR 55 ml/min 04/17/21 13:02 BUN/Creatinine Ratio 12 % 04/17/21 13:02 Glucose 132 mg/dL (75-100) H 04/17/21 13:02 Hemoglobin A1c 5.0 % (4-6) 04/17/21 13:02 Calcium 9.2 mg/dL (8.4-10.2) 04/17/21 13:02 Total Bilirubin 0.20 mg/dL (0.1-1.2) 04/17/21 13:02 AST 39 units/L (5-40) 04/17/21 13:02 ALT 24 units/L (7-56) 04/17/21 13:02 Alkaline Phosphatase 91 units/L (35-129) 04/17/21 13:02 Total Protein 6.2 g/dL (6.3-8.2) L 04/17/21 13:02 Albumin 3.7 g/dL (3.9-5) L 04/17/21 13:02 Albumin/Globulin Ratio 1.5 % 04/17/21 13:02 Triglycerides 132 mg/dL (2-149) 04/17/21 13:02 Cholesterol 98 mg/dL (50-199) 04/17/21 13:02 LDL Cholesterol Direct 33 mg/dL (50-130) L 04/17/21 13:02 HDL Cholesterol 47 mg/dL (40-59) 04/17/21 13:02 Cholesterol/HDL Ratio 2.08 % 04/17/21 13:02 TSH 4.420 mlU/mL (0.270-4.200) H 04/17/21 13:02 Core Measure Documentation - Palliative Care Palliative Care/ Comfort Measures: Not Applicable - Core Measures Any of the following diagnoses?: none Exam - Constitutional Vitals: Temp Pulse Resp BP Pulse Ox 98.4 F 47 L 18 126/44 95 04/21/21 22:00 04/21/21 22:00 04/21/21 22:00 04/21/21 22:00 04/21/21 22:00 General appearance: Present: no acute distress - EENT ENT: hearing intact, clear oral mucosa - Neck Neck: Present: supple, normal ROM - Respiratory Respiratory effort: normal - Abdominal Male genitourinary: Present: deferred - Rectal Rectal Exam: deferred - Integumentary Integumentary: Present: clear, warm, dry Plan Activity: no restrictions Care Plan Goals: Goals: Maintain good and stable mental health. Plan of Treatment: The patient should be compliant with medications, not to use drugs and not to drink alcohol. The patient understands that if suicidal ideas, homicidal ideas, or any endangering thoughts arise, the patient should immediately seek for emergent assistance including but not limited to crisis hot line and emergency room. Follow up with outpatient Psychiatrist and PCP within 7 - 14 days of discharge. Follow up with: PRIMARY CARE,MD [Primary Care Provider] - 7 Days Prescriptions: traZODone [Desyrel] 50 mg PO QHS #30 tablet Venlafaxine Xr [Effexor XR] 150 mg PO QDAY #30 capsule OLANzapine [ZyPREXA] 5 mg PO HS #30 tablet
[2021-04-22] MEDS: hydrOXYzine HCL 25 MG TAB PO SCH (09:19)
[2021-04-22] MEDS: VENLAFAXINE XR 75 MG CAP PO SCH (09:19)
[2021-04-22] MEDS: HYDROmorphone 2 MG TAB PO SCH (09:19)
[2021-04-22] MEDS: METOPROLOL TARTRATE 50 MG TAB PO SCH (09:20)
[2021-04-22] MEDS: PANTOPRAZOLE 40 MG TAB PO SCH (09:20)
[2021-04-22 14:48] VITALS: BP 139/57
--- NOTE | 2021-04-22 19:17 | Event Note ---
Date: 04/22/21 Patient has extensive coronary artery disease and aneurysm EKG shows left bundle block which is old Patient has some epigastric pain Clinically normal exam Patient to follow-up with cardiology at his place in [place]. Patient medically cleared to be discharged.
--- NOTE | 2021-04-25 19:12 | Electrocardiograph Report ---
[facility] Test Date: 2021-04-22 Test Time: 15:27:15 Pat Name: AMADA SNOW Department: Room: [facility] 1 Gender: M Drain Cleaner: ALY : 1955 Requested By: RICKY REYES Order Number: [id number] Reading MD: Alphonso Michael Measurements Intervals [place] Rate: 51 P: 83 MI: 156 QRS: 12 QRSD: 112 T: -44 QT: 466 QTc: 430 Interpretive Statements Sinus bradycardia Incomplete left bundle branch block Compared to ECG 04/17/2021 01:15:28 No significant change. T-wave abnormality no longer present Electronically Signed On 04-25-2021 19:11:42 EDT by Alphonso Michael
== END 2021-04-22 20:40 | disposition home or self-care (01) | DRG 885 ==
LOC: UNDOADMIN 12:55 → 3A 12:55 → 5A 04-17 06:04
PROVIDERS: ADMIT Psychiatry & Neurology Psychiatry; ATTEND Psychiatry & Neurology Psychiatry
DX: F32.3 Major depressive disorder, single episode, severe with psychotic features (principal); K50.90 Crohn's disease, unspecified, without complications; G89.4 Chronic pain syndrome; M48.00 Spinal stenosis, site unspecified; I05.0 Rheumatic mitral stenosis; F01.50 Vascular dementia, unspecified severity, without behavioral disturbance, psychotic disturbance, mood disturbance, and anxiety; I67.2 Cerebral atherosclerosis; Z88.5 Allergy status to narcotic agent; Z88.8 Allergy status to other drugs, medicaments and biological substances; Z79.82 Long term (current) use of aspirin; Z82.49 Family history of ischemic heart disease and other diseases of the circulatory system
CPT/HCPCS: 36415; 71045; 80053; 80061; 80307; 80320; 81001; 83036; 84443; 84484; 85025; 93005; G0378; G0480